=== PATIENT | female | born 1955 | race Caucasian/White ===

== ENCOUNTER → 2017-10-20 09:45 | Outpatient (CLI) | payer OTHER, SELFPAY ==
[2017-09-23 13:04] VITALS: BP 116/68; BMI 22.6
--- NOTE | 2017-10-20 10:00 | ECHOD_ITS ---
Reason For Study: Cardiomyopathy Procedure This was a 2D Doppler, Color Flow transthoracic echocardiogram. The exam was of adequate technical quality. Exam performed in department. Left Ventricle Normal LV size. Apical false tendon noted. Left ventricular systolic function is lower limits of normal. The estimated ejection fraction is 50 %. No regional wall motion abnormalities noted. Right Ventricle Normal RV size. Normal systolic function. Atria Normal left atrium. Normal right atrium. No doppler evidence for ASD. Mitral Valve There is no mitral annular calcification. Mild diffuse mitral valve thickening. Mild (1+) mitral valve insufficiency. Tricuspid Valve Normal tricuspid valve. Trivial tricuspid valve insufficiency. Aortic Valve Trisinus/trileaflet aortic valve. Mild diffuse aortic valve thickening. Pulmonic Valve The pulmonic valve is not well visualized. Trivial pulmonic valve insufficiency. Great Vessels Normal sized aortic root. Pericardium/Pleural No pericardial effusion. MMode/2D Measurements & Calculations LVIDd: 5.4 cm IVSd: 0.82 cm Ao root diam: 3.5 cm LVIDs: 3.9 cm LVPWd: 0.90 cm LA dimension: 3.1 cm FS: 28.2 % LAV(MOD-bp): 49.9 ml LA A4 area: 17.9 cm2 RA A4 area: 15.5 cm2 LAV(MOD-bp) Indexed: 30.3 ml/m2 LAV(MOD-sp2): 50.1 ml LAV(MOD-sp4): 48.9 ml Time Measurements MV dec time: 0.30 sec Doppler Measurements & Calculations MV E max tanvir: 80.3 cm/sec Med Peak E' Tanvir: 9.0 cm/sec MV V2 max: 90.5 cm/sec MV A max tanvir: 72.3 cm/sec E/E' med: 9.0 MV max P.3 mmHg MV E/A: 1.1 MV V2 mean: 51.3 cm/sec MV mean P.2 mmHg MV V2 VTI: 34.9 cm MV P1/2t max tanvir: 89.6 cm/sec Ao V2 max: 112.2 cm/sec LV V1 max: 76.9 cm/sec MV P1/2t: 149.1 msec Ao max P.0 mmHg LV V1 max P.4 mmHg MV dec slope: 176.0 cm/sec2 Ao V2 mean: 70.0 cm/sec LV V1 mean P.3 mmHg MVA(P1/2t): 1.5 cm2 Ao mean P.3 mmHg LV V1 mean: 54.7 cm/sec Ao V2 VTI: 24.5 cm LV V1 VTI: 18.8 cm PA V2 max: 103.0 cm/sec Interpretation Summary Left ventricular systolic function is lower limits of normal. The estimated ejection fraction is 50 %. Apical false tendon noted. Mild diffuse mitral valve thickening. Mild (1+) mitral valve insufficiency. Trivial tricuspid valve insufficiency. Mild diffuse aortic valve thickening. Trivial pulmonic valve insufficiency. Ordering Physician: Karri Trujillo Referring Physician: Karri Trujillo Performed By: John Kramer RCS
== END ==
PROVIDERS: Family Provider Internal Medicine; PCP Internal Medicine; Visit Provider Internal Medicine Cardiovascular Disease
DX: E78.5 Hyperlipidemia, unspecified (principal); I43 Cardiomyopathy in diseases classified elsewhere
CPT/HCPCS: 93306

== ENCOUNTER → 2017-11-05 16:11 | Outpatient (CLI) | payer OTHER, SELFPAY ==
[2017-11-05 17:51] LABS: Anion Gap 7 (5-15); BUN 25 mg/dL (7-18); BUN/Creat Ratio 22.3 RATIO (10-20); Calcium,Total 8.8 mg/dL (8.5-10.1); Chloride 103 mmol/L (98-107); Creatinine, Serum 1.12 mg/dL (0.55-1.02); EST Glomerular Filtration Rate 52 mL/min (>60); Est Glom Filt Rate - Afr Amer 63 mL/min (>60); Glucose 98 mg/dL (74-106); Potassium 4.1 mmol/L (3.5-5.1); Sodium Level 139 mmol/L (136-145)
== END ==
PROVIDERS: Family Provider Internal Medicine; PCP Internal Medicine; Visit Provider Internal Medicine
DX: I42.9 Cardiomyopathy, unspecified (principal)
CPT/HCPCS: 36415; 80048

== ENCOUNTER → 2017-11-06 15:23 | Outpatient (CLI) | payer OTHER, SELFPAY ==
--- NOTE | 2017-11-06 15:25 | HPBI_ITS ---
MAMMOGRAPHY - BILATERAL SCREENING REASON FOR EXAM: Female, 62 years old. Routine annual screening examination. PERTINENT HISTORY: Mother with breast cancer. TECHNIQUE: Digital bilateral breast johnathan (3D mammographic acquisition) in the CC and MLO projections. 2-D mediolateral oblique (MLO) and craniocaudad (CC) views of both breasts were obtained. CAD: Full Field Digital Mammography with Computer Added Detection was performed. COMPARISON: Comparison is made with prior study dated October 24, 2016 and September 18, 2015. FINDINGS: Breast Composition: The breasts are extremely dense, which lowers the sensitivity of mammography. There are no dominant masses or suspicious calcifications. No other significant abnormalities are identified. There has been no significant change since the prior study. HPBI/SCREENING MAMM (CAD), BILAT IMPRESSION: Stable bilateral screening mammogram. Yearly follow-up mammogram recommended. (A) ASSESSMENT CATEGORY: BIRADS Category 1: Negative. A letter regarding these results will be sent to the patient by the facility within 30 days. Approximately 10% of breast cancers are not detected by mammography. A normal mammogram should not delay biopsy of a clinically suspicious abnormality. [id number] Electronically Signed: Chetan Ba MD at 8:08 EST Tel [phone], Service support ,
== END ==
PROVIDERS: Family Provider Internal Medicine; PCP Internal Medicine; Visit Provider Obstetrics & Gynecology
DX: Z12.31 Encounter for screening mammogram for malignant neoplasm of breast (principal)
CPT/HCPCS: 77063; 77067

== ENCOUNTER 2018-04-13 05:28 | Day surgery (SDC) | payer OTHER, SELFPAY ==
[2018-03-29 09:53] VITALS: BP 109/58; PULSE 60; RESP 16; TEMP 36.5; O2SAT 97; BMI 22.1
--- NOTE | 2018-03-29 10:19 | SDCEKG_ITS ---
Test Reason : Blood Pressure : / mmHG Vent. Rate : 052 BPM Atrial Rate : 052 BPM P-R Int : 160 ms QRS Dur : 092 ms QT Int : 458 ms P-R-T Axes : 068 -14 -04 degrees QTc Int : 425 ms Sinus bradycardia with sinus arrhythmia Otherwise normal ECG Confirmed by LOUIS RAY, SANTIAGO ([id number]), telegraph editor ABBIE MKCEON ([id number]) on 03/30/2018 2:59:27 PM Referred By: Osvaldo Angel Confirmed By:SANTIAGO MYERS MD
[2018-03-29 10:54] LABS: Absolute Lymphocyte Count 1.65 X10^3/ul (0.83-4.51); Absolute Neutrophil Count 2.9 X10^3/uL (2.0-7.7); Basophil# 0.01 X10^3/uL; Basophil% 0.2 % (0-1); Eosinophils% 3.7 % (0-5); Hematocrit 37.8 % (37-47); Hemoglobin 12.3 g/dl (12.0-15.0); Lymphocyte # 1.65 X10^3/ul (4.0); Lymphocyte % 30.9 % (19-41); Mean Corp Hgb Conc 32.5 g/gl (32-36); Mean Corpuscular Hgb 30.7 pg (27.0-32.0); Mean Corpuscular Volume 94.3 fL (81-99); Monocyte# 0.54 X10^3/uL; Monocyte% 10.1 % (0-10); Neutrophil # 2.94 X10^3/uL (2.7-7.7); Neutrophil % 55.1 % (47-70); Platelet Count 155 K/mm3 (150-450); RBC Distribution Width SD 45.5 fl (35.1-43.9); Red Blood Count 4.01 M/mm3 (4.2-5.4); White Blood Count 5.3 K/mm3 (4.4-11.0)
[2018-03-29 11:04] LABS: POSITIVE COUNT NO; POSITIVE DIFFERENTIAL NO; POSITIVE MORPHOLOGY NO
[2018-03-29 11:16] LABS: Anion Gap 4 (5-15); BUN 15 mg/dL (7-18); BUN/Creat Ratio 14.2 RATIO (10-20); Calcium,Total 8.9 mg/dL (8.5-10.1); Chloride 109 mmol/L (98-107); Creatinine, Serum 1.06 mg/dL (0.55-1.02); EST Glomerular Filtration Rate 55 mL/min (>60); Est Glom Filt Rate - Afr Amer 67 mL/min (>60); Estimated Creatinine Clearance 47.61 ml/min; Glucose 88 mg/dL (74-106); Potassium 4.1 mmol/L (3.5-5.1); Sodium Level 142 mmol/L (136-145)
[2018-04-13 05:54] VITALS: BP 108/45; PULSE 55; RESP 16; TEMP 37.1; O2SAT 100; BMI 22.1
[2018-04-13] MEDS: oxyCODONE HCl Cr 10 MG Tablet PO (06:05)
[2018-04-13] MEDS: Acetaminophen 500 MG Tablet 1000 MG PO (06:05)
[2018-04-13] MEDS: Celecoxib 200 MG Capsule 400 MG PO (06:06)
[2018-04-13] MEDS: Lactated Ringers 1,000 ML 999 ML IV (06:30)
--- NOTE | 2018-04-13 06:44 | RAD_ITS ---
STUDY: X-RAY - PELVIS AND RIGHT HIP REASON FOR EXAM: Female, 63 years old. Postop TECHNIQUE: Radiological exam, hip, unilateral, with pelvis when performed; 2 or 3 views. COMPARISON: None. FINDINGS: There is a non-specific bowel gas pattern. Normal visualized soft tissue structures. Normal bilateral iliac wings, sacroiliac joints and visualized sacrum. Normal bilateral superior and inferior pubic rami. Normal pubic symphysis. Normal bilateral ischial tuberosities. Status post total right hip replacement changes are seen. Implants appear in good position. Scattered soft tissue air densities are seen in the right hip area consistent with history of recent surgery. RAD/Hip Min 2 Views (Portable) IMPRESSION: Status post total replacement changes noted with implants appearing in good position. Electronically Signed: Theodore Osborn MD at 17:05 EDT , Service support ,
[2018-04-13] MEDS: Cefazolin 2 GM in 0.9% Normal Saline 100 ML IV (07:14)
[2018-04-13] MEDS: Lactated Ringers 1,000 ML 125 ML IV (07:15)
--- NOTE | 2018-04-13 07:15 | RAD_ITS ---
STUDY: X-RAY - PELVIS AND RIGHT HIP REASON FOR EXAM: Female, 63 years old. Anterior hip replacement. TECHNIQUE: Radiological exam, hip, unilateral, with pelvis when performed; 2 or 3 views. COMPARISON: None. FINDINGS: Intraoperative fluoroscopic services were provided for right anterior total hip replacement. There is good alignment. RAD/Hip 1 view with Pelvis IMPRESSION: Status post right anterior total hip replacement. Electronically Signed: Chetan Ba MD at 10:29 EDT Tel [phone], Service support ,
--- NOTE | 2018-04-13 08:36 | OP.PCM_ITS ---
Report of Operation Date of Procedure: 04/13/18 Pre-Operative Diagnosis: Right hip primary osteoarthritis Post-Operative Diagnosis: Right hip primary osteoarthritis Surgery/Procedure Performed:: Right direct anterior total hip replacement Description of Surgical Findings:: Stable hip with equal leg lengths cream maker: Arnoldo Valero Type of Anesthesia:: Spinal Anesthesiologist: Willis Packer Special Medications: 2 g Ancef, 1 g TXA at incision, 1 g TXA closure, 10 mg Decadron, joint cocktail (5 mg Duramorph, 30 mL of 0.5% Ropivicaine, 1000 units of epinephrine, 30 mg of Toradol) Specimen's removed: Bony cuts Estimated Blood Loss (mL): 200 Fluids Replaced: 1400 ml Description of Procedure: Components used: 1. Accolade 2 [place] femoral stem size 5 127? 2. [place] trident acetabular shell size 52 mm 3. Portia X3 polyethylene E 4. [place] Biolox delta 36-mm,5]mm femoral head Brief history operative indications: 63 yo F who failed conservative measures for their hip osteoarthritis. X-rays were consistent with osteoarthritis including joint space narrowing, osteophyte formation and subchondral cysts. Total hip replacement was discussed with the patient with risks and benefits including but not limited to blood loss, DVTs, PEs, neurovascular damage, dislocation, general risks of anesthesia including loss of life. Patient demonstrated an understanding medical clearance is obtained the patient was consented for surgery. Procedure: On the date of procedure the patient's R hip was marked in the preoperative area. Patient was then taken back to the operating room where anesthesia assumed control of the C-spine and airway and administered anesthetic. Patient was transferred to the operating table and placed in the supine position. The hips were placed at the break of the bed and a sacral bump was placed. The R lower extremity was then prepped out in a sterile fashion using chlorhexidine while the surgeon scrubbed. The PA was vital in the positioning of the patient. Upon reentering the room the R lower extremity was draped in the standard orthopedic fashion and the incision was marked. A timeout was called and everyone agreed upon the side, the site, the procedure be performed, antibody given, and patient's identity. At this time incision was made through skin, subcutaneous tissue, and fat down to fascia. The fascia was then incised and the TFL was retracted laterally. A retractor was placed on the lateral border of the femoral neck. Attention was directed to the inferior portion of the approach and all crossing vessels were identified and appropriately coagulated. A retractor was then placed on the medial portion of the femoral neck. The anterior capsule was then cleared of all soft tissue and then H shaped capsulotomy was made. The retractors were then placed inside the capsule. The femoral neck was identified and a cleanup cut was made. At this time a power corkscrew was used to remove the femoral head. Attention was then turned toward the acetabulum where the soft tissues were appropriately retracted and the acetabulum was sequentially reamed to 51 mm. A 52 mm cup was then selected and impacted into place. Acetabular liner was impacted into place and locking mechanism was verified. The position of the acetabular cup was then verified under live fluoroscopy. Attention was then turned to the femur. Soft tissue releases on the medial and lateral femoral neck were appropriately done, the leg was externally rotated and lateralized. A Mart retractor was placed medially and proximally to the greater trochanter this allowed appropriate visualization and exposure of the femoral canal. Rongeour was then used to remove excess lateral bone. A canal finder and entry broach were used to open the proximal canal. Once we verified we were down the femoral canal we subsequently broached up to a size 5 femur. The appropriate neck was placed in the previously selected head was trialed with a -5 mm neck. Traction was pulled and the hip was reduced with internal rotation. Once it was appropriately reduced and stability was checked. There was minimal shuck, equal leg lengths and appropriate stability with hyperextension and external rotation as well as with 90? flexion and internal rotation. Fluoroscopy was then also used to verify the position of the components and leg lengths using the contralateral side for comparison. The trial components were then dislocated the proximal femur was again exposed and the components were removed from the wound. The final components were verified and opened. The wound was copiously irrigated out with normal saline. The acetabulum was checked for any residual debris. The final components were placed and impacted. Traction and internal rotation were again used to reduce the hip. After adequate reduction the hip remained stable with appropriate leg lengths. The final components were once again checked with live fluoroscopy and were found to be satisfactory. The wound was then copiously irrigated with normal saline once more, and hemostasis was obtained. Closure was then done using #1 Vicryl runner to close the fascia. A 2-0 vicryl interuppted sutures were used to close the subcutaneous skin. A 3-0 Monocryl and Steri-Strips were used for final skin closure. A Silverlon dressing was placed. Patient was awakened by anesthesia and transferred to the [facility]. Patient was then transferred to the PACU for recovery. Postoperative plan: Patient will get 24 hours postop antibiotics. Patient will get in-house physical therapy and will be weight-bear as tolerated. Patient will follow up in office in 2 weeks for a wound check and x-rays. During the course of the procedure the physician legal document assistant played a vital role. His intimate knowledge of my steps in the procedure aided in safe and expedient completion of the procedure. The PA played a vital rolls in positioning particularly in obtaining the appropriate positioning of the sacral bump. The PA was also vital in the retraction of soft tissues during the exposure and especially the femoral work as this is a vital part of the procedure to prevent complications and fractures. The PA was also vital and protecting soft tissues during times of bony cuts and reaming. He also played a vital role in closure with my direct supervision. The PA was also important during reduction and dislocation of the joint and trials intraoperatively. Grafts/Implants Used: [place] Accolade 2 - Complications none - Admit VTE Documentation VTE Present on Admission: No VTE Mechan Device Prophylaxis: SCD's, Thigh High ANALIA Hose VTE Pharm Prophylaxis ordered?: Yes
[2018-04-13 08:58] VITALS: BP 108/45; BP 116/71; PULSE 71; RESP 18; TEMP 36.3; O2SAT 100
[2018-04-13 09:15] VITALS: BP 108/45; BP 122/74; PULSE 66; RESP 18; O2SAT 100
[2018-04-13 09:25] VITALS: BP 108/45; BP 129/60; PULSE 66; RESP 18; TEMP 36.3; O2SAT 100
[2018-04-13] MEDS: Cefazolin 1 GM/50 ML BAG IV (12:20)
[2018-04-13] MEDS: oxyCODONE 5 MG Tablet PO (12:35)
[2018-04-13 13:01] VITALS: BP 108/45; BP 109/59; PULSE 53; RESP 16; TEMP 36.2; O2SAT 99
== END 2018-04-13 13:05 | disposition home or self-care (01) ==
LOC: AC 16:12
PROVIDERS: Family Provider Internal Medicine; PCP Internal Medicine; Visit Provider Specialist
PROC: (CPT 27284; principal; 2018-04-13 06:50)
DX: M16.11 Unilateral primary osteoarthritis, right hip (principal); M51.36 Other intervertebral disc degeneration, lumbar region; J45.909 Unspecified asthma, uncomplicated; I42.8 Other cardiomyopathies; E78.00 Pure hypercholesterolemia, unspecified; F32.9 Major depressive disorder, single episode, unspecified; Z85.828 Personal history of other malignant neoplasm of skin; Z79.891 Long term (current) use of opiate analgesic; Z79.82 Long term (current) use of aspirin; Z79.51 Long term (current) use of inhaled steroids; Z79.899 Other long term (current) drug therapy
CPT/HCPCS: 01214; 27130; 73501; 73502; 76000; 80048; 85025; 87077; 87081; 93005; 97162; C1776; J7120; A4216; J2405

== ENCOUNTER → 2018-05-26 10:50 | Outpatient (CLI) | payer OTHER, SELFPAY ==
--- NOTE | 2018-05-26 10:55 | BD_ITS ---
STUDY: DUAL ENERGY X-RAY ABSORPTIOMETRY / DXA REASON FOR EXAM: Female, 63 years old. The patient is postmenopausal. Loss of height. TECHNIQUE: Bone Mineral Density (BMD) measurements of lumbar spine and left hip were obtained. The patient is status post right hip replacement. COMPARISON: None. FINDINGS: Lumbar Spine (L1-L4): g/cm2 (0.974) / T-score (-1.6) / Z-score (0.0) Findings are suggestive of osteopenia with a moderate fracture risk. Left Femur Total: g/cm2 (0.749) / T-score (-2.1) / Z-score (-0.9) Left Femoral Neck: g/cm2 (0.827) / T-score (-1.5) / Z-score (0.1) BD/Dexa Bone Density Study IMPRESSION: The patient is considered osteopenic as outlined below according to World Mike Organization (WHO) criteria with a moderate fracture risk. Reference Information: The T-score is the number of standard deviations above or below the standard which is normal for young adults at their peak bone mineral density. The World Health Organization (WHO) interprets the T-scores as follows: Above -1 Normal bone density Between -1 and -2.5 Osteopenia Equal to / or below -2.5 Osteoporosis As a practical clinical guideline, osteopenia may be graded as follows: Mild -1 through -1.5 Moderate -1.6 through -2.0 Severe -2.1 through -2.4 The Z-score is the number of standard deviations above or below age-matched controls. A Z-score of less than -1.5 would be considered abnormal. References: 1. NIH Osteoporosis and Related Bone Diseases http://www.osteo.org 2. International Society for Clinical Densitometry http://www.iscd.org 3. National Osteoporosis Foundation http://www.nof.org Electronically Signed: Chetan Ba MD at 15:32 EDT Tel [phone], Service support ,
== END ==
PROVIDERS: Family Provider Internal Medicine; PCP Internal Medicine; Visit Provider Internal Medicine
DX: Z78.0 Asymptomatic menopausal state (principal)
CPT/HCPCS: 77080

== ENCOUNTER → 2018-09-27 07:16 | Outpatient (CLI) | payer OTHER, SELFPAY ==
[2018-05-05 14:10] VITALS: BMI 20.9
[2018-09-27 08:32] LABS: AST(SGOT) 21 U/L (15-37); Alanine Aminotransfer ALT/SGPT 32 U/L (13-56); Albumin, Serum 3.5 g/dL (3.2-5.0); Alkaline Phosphatase 71 U/L (45-117); Bilirubin, Direct 0.11 mg/dL (0.00-0.30); Cholesterol 166 mg/dL (200); Globulin 3.3 g/dL (2.2-4.2); High Density Lipoprotein 64 mg/dL; Protein, Total 6.8 g/dL (6.4-8.2); Triglycerides 66 mg/dL; Very Low Density Lipoprotein 13 mg/dL (5-40)
== END ==
PROVIDERS: Family Provider Internal Medicine; PCP Internal Medicine; Referring Provider Internal Medicine Cardiovascular Disease; Visit Provider Internal Medicine Cardiovascular Disease
DX: E78.5 Hyperlipidemia, unspecified (principal)
CPT/HCPCS: 36415; 80061; 80076

== ENCOUNTER → 2019-04-28 | Outpatient (CLI) | payer OTHER, SELFPAY ==
[2019-01-19 14:16] VITALS: BMI 23.1
--- NOTE | 2019-04-28 07:19 | BI_ITS ---
MAMMOGRAPHY - BILATERAL SCREENING REASON FOR EXAM: Female, 64 years old. Routine annual screening examination. PERTINENT HISTORY: Mother with breast cancer. History of remote right breast aspiration. TECHNIQUE: Digital bilateral breast sánchez (3D mammographic acquisition) in the CC and MLO projections. 2-D mediolateral oblique (MLO) and craniocaudad (CC) views of both breasts were obtained. CAD: Full Field Digital Mammography with Computer Added Detection was performed. COMPARISON: Comparison is made with prior study dated November 06, 2017 and October 24, 2016. FINDINGS: Breast Composition: The breasts are extremely dense, which lowers the sensitivity of mammography. There are no dominant masses or suspicious calcifications. No other significant abnormalities are identified. There has been no significant change since the prior study. BI/SCREEN MAMM (CAD) W/SÁNCHEZ BILAT IMPRESSION: Stable bilateral screening mammogram. Yearly follow-up mammogram recommended. (A) ASSESSMENT CATEGORY: BIRADS Category 1: Negative. A letter regarding these results will be sent to the patient by the facility within 30 days. Approximately 10% of breast cancers are not detected by mammography. A normal mammogram should not delay biopsy of a clinically suspicious abnormality. [id number] Electronically Signed: Chetan Ba, at 9:05 EDT , Service support ,
== END | disposition home or self-care (01) ==
PROVIDERS: Family Provider Internal Medicine; PCP Internal Medicine; Referring Provider Obstetrics & Gynecology; Visit Provider Obstetrics & Gynecology
DX: Z12.31 Encounter for screening mammogram for malignant neoplasm of breast (principal)
CPT/HCPCS: 77063; 77067

== ENCOUNTER → 2019-05-12 | Outpatient (CLI) | payer OTHER, SELFPAY ==
[2019-05-09 09:39] VITALS: BMI 23.1
[2019-05-12 09:17] LABS: Absolute Lymphocyte Count 1.81 X10^3/uL (0.83-4.51); Absolute Neutrophil Count 3.3 X10^3/uL (2.0-7.7); Basophil# 0.03 X10^3/uL; Basophil% 0.5 % (0-1); Eosinophil# 0.19 X10^3/uL; Eosinophils% 3.2 % (0-5); Hematocrit 38.5 % (37-47); Hemoglobin 12.6 g/dL (12.0-15.0); Lymphocyte # 1.81 X10^3/ul (4.0); Lymphocyte % 30.5 % (19-41); Mean Corp Hgb Conc 32.7 g/dL (32-36); Mean Corpuscular Hgb 31.1 pg (27.0-32.0); Mean Corpuscular Volume 95.1 fL (81-99); Mean Platelet Vol. 11.6 fl (6.2-12.0); Monocyte# 0.61 X10^3/uL; Monocyte% 10.3 % (0-10); NRBC Flagged by Analyzer 0 % (0-5); Neutrophil # 3.28 X10^3/uL (2.7-7.7); Neutrophil % 55.3 % (47-70); Platelet Count 172 K/mm3 (150-450); RBC Distribution Width CV 12.6 % (11.6-14.6); RBC Distribution Width SD 43.8 fl (35.1-43.9); Red Blood Count 4.05 M/mm3 (4.2-5.4); White Blood Count 5.9 K/mm3 (4.4-11.0)
[2019-05-12 09:42] LABS: ALB/GLOB Ratio 1.1 RATIO (0.9-2.4); AST(SGOT) 22 U/L (15-37); Alanine Aminotransfer ALT/SGPT 29 U/L (13-56); Albumin, Serum 3.7 g/dL (3.2-5.0); Alkaline Phosphatase 74 U/L (45-117); Anion Gap 7 (5-15); BUN 25 mg/dL (7-18); BUN/Creat Ratio 21.9 RATIO (10-20); Calcium,Total 9.1 mg/dL (8.5-10.1); Chloride 109 mmol/L (98-107); Creatinine, Serum 1.14 mg/dL (0.55-1.02); EST Glomerular Filtration Rate 51 mL/min (>60); Est Glom Filt Rate - Afr Amer 61 mL/min (>60); Globulin 3.4 g/dL (2.2-4.2); Glucose 88 mg/dL (74-106); Potassium 4.9 mmol/L (3.5-5.1); Protein, Total 7.1 g/dL (6.4-8.2); Sodium Level 144 mmol/L (136-145)
== END | disposition home or self-care (01) ==
LOC: LAB 08:21
PROVIDERS: Family Provider Internal Medicine; PCP Internal Medicine; Referring Provider Internal Medicine; Visit Provider Internal Medicine
DX: E78.5 Hyperlipidemia, unspecified (principal); K21.9 Gastro-esophageal reflux disease without esophagitis
CPT/HCPCS: 36415; 80053; 85025

== ENCOUNTER 2019-05-26 13:18 | Outpatient (RCR) | payer OTHER, SELFPAY ==
[2019-05-09 09:39] VITALS: BMI 23.1
--- NOTE | 2019-05-26 13:30 | SOAP_ITS ---
REASON FOR REFERRAL: The Patient is a 64 year old female referred for a clinical assessment of the Patients vocal functioning at [facility] on 05/26/2019 due to persistent dysphonia and occasional aphonia secondary to presbyphonia with prior vocal nodules. The Patient was pleasant and conversant throughout the assessment, reporting persistent vocal hoarseness, dysphonia, and at times cacophonia with vocal fatigue / deterioration particularly during and following singing attempts. She reports her symptoms had initially appeared in July of 2016 and July of 2017, lasting about 1 month in duration; she reports a recurrence of symptoms in July of 2018, though her symptoms have yet to resolve, though have somewhat fluctuated in regards to intensity. She details workup targeting reflux through both her civil engineering project designer (Samra) and primary care physician, with placement on Omeprazole with some improvements (reductions in coughing and mucous production); she notably self-discontinued usage prior to suspected achievement of therapeutic effect, and has subsequently been recommended to continued usage by her primary care physician. She reports workup via her civil engineering project designer revealed irritation secondary to reflux (unclear if this was laryngeal, pharyngeal, esophageal, or in combination), with no further structurally based findings, with etiological considerations for presbyphonia. She further reports attempts to manage her reflux through dietary changes (reduction in caffeine intake, reduction in spicy foods / acidic foods, smaller meal sizes), though with limited success (states specific difficulty giving up spicy foods). She further reports attempts to ameliorate symptomology through ingestion of warm vs. cold beverages (ineffective). Of note, she reports that her sister had demonstrated similar issues with vocalization approximately 10 years prior leading to a period of near complete aphonia, with her symptomology directly related to reflux induced irritation, which was responsive to similar treatment with proton pump inhibitors. She additionally reports persistent allergies that typically flair in the early summer months, which have been somewhat managed via Loratadine / Claritin, though she reps these symptoms have worsened this season, and has relied more so on Zyrtec; more recently placed on Singulair. She reports enjoying both basketball and football, and does report getting somewhat animated and loud during games, though nothing overbearing. She additionally participates in social activities through her spiritism, is currently attending Austrian classes, and is an avid reader. She does participate in her spiritism choir, and states concern with singing methods that require lower registers vs. four part harmony which she believes exacerbates her symptoms; she reports occasional dysphonia, diplophonia, and cacophonia during singing attempts. She does report potentially maladaptive singing behaviors, stating she occasionally ?pushing? her singing intensity to match that of her , whom she states is a naturally loud nieto. She currently resides with her , and has three grown children. 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 Her affect appears appropriate, with no concerns with cognitive functioning; ambulating independently without needs for assistive devices. MEDICAL HISTORY: Gastroesophageal reflux disease, asthma, shortness of breath, allergic rhinitis, prior basal cell skin cancer, nonrheumatic mitral valve disorder, idiopathic cardiomyopathy, hyperlipidemia, depression, chronic fatigue, status post section, carpal tunnel syndrome status post-surgical intervention, status post trigger finger release, status post meniscus repair, status post hip replacement, status post right knee replacement. CURRENT MEDICATIONS: Loratadine 10 mg capsule 10 mg PO QDAY PRN Metronidazole [Metrogel] 60 gm TP PRN Carvedilol 25 mg tablet 25 mg PO BID #180 tab Lisinopril 10 mg tablet 10 mg PO BID #180 tab Calcium carbonate-vitamin D3 500 mg (1,250 mg)-600 unit tablet 1 tab PO BID Albuterol sulfate HFA 90 mcg/actuation aerosol inhaler 2 puff INHALATION Q6H PRN Budesonide 180 mcg/actuation breath activated powder inhaler 1 INH INHALATION BID Omeprazole 40 mg capsule, delayed release 40 mg PO DAILY Pravastatin 20 mg tablet 20 mg PO QHS #90 tab Montelukast 10 mg tablet 10 mg PO QPM #30 tab Bupropion HCl XL 300 mg 24 hr. tablet, extended release 300 mg PO QAM ADDITIONAL OBJECTIVE ASSESSMENT RESULTS: 11/10/2018 pulmonary functions test revealed the presence of an irreversible moderate large airways obstructive ventilatory defect with a mild reduction in diffusion capacity; pattern of this study would be suggestive of underlying chronic obstructive pulmonary disease; no previous pulmonary function studies available for comparison. CLINICAL ASSESSMENT OF VOCAL FUNCTIONING (QUANTITATIVE): Reflux Symptom Index (RSI): 7 (>13 may be indicative of significant reflux) Voice Handicap Index ? 10 (VHI-10): 7 (slight alteration) S/Z Ratio: 1.23 (1.40 suggests vibratory dysfunction of the vocal folds) Maximum Phonation Time (MPT): 21.82 seconds Average Maximum Intensity of Sustained Vowel Phonation: 76.1 dBSPL Average Vocal Intensity During Reading of Passage: 65.68 dBSPL CLINICAL ASSESSMENT OF VOCAL FUNCTIONING (QUALITATIVE): PHONATORY DISORDERS: dysphonia with occasional / intermittent diplophonia, vocal hoarseness, and glottal martinez leading to occasional pitch breaks; noted deterioration of vocal quality with prolonged use; no clear strained- strangled production or glottal attack (though per report this may be demonstrated during choir based activities); no vocal tremor; sufficient vocal intensity throughout vocalizations. RESONANCE DISORDERS: no hypernasality / hyperrhinolalia or hyponasality appreciated. RESPIRATORY FACTORS: appropriate breathing rate and quality without claviclular breathing or open mouth breathing; no stridor. STRUCTURAL / NEUROLOGICAL: no aphasia, apraxia, dysarthria, or atypical disfluent patterns noted. NON-VERBAL VOCAL RANGE AND FLEXIBILITY: sufficient vocal intensity throughout vocalization attempts; acceptable pitch range for demonstrated registers. NON-PHONATORY BEHAVIORS: occasional throat clearing (x7) and coughing (x3) throughout the session with no clear trigger; no claviclular breathing noted; no stridor. RESULTS OF THE EVALUATION: Clinical assessment of the Patients vocal function completed this date, with the Patient presenting with mild dysphonia (R49.0) likely secondary to a combination of factors, to include possible irritation secondary to previously unmanaged gastroesophageal reflux disease. RECOMMENDATIONS: Will encourage vocal rest paired with continued compliance with recommended proton pump inhibitors to promote continued reduction in potential irritation to the vocal structures. Recommend holding participation in choir based activities (at minimum significantly limiting participation / vocal projection). Re-convene in 3 months? time (session scheduled for August 25 at 0900) to re-assess her vocal functioning for potential improvements, with considerations for implementation of (VRT) approach in addition to targeting vocal functioning / dysphonia via structured therapeutic exercises targeting improved breath support, medial glottal closure, pitch control, and vocal flexibility; development of a home based exercise and vocal hygiene program to promote continued carryover post intervention cycle; FUNCTIONAL OUTCOMES: OUTCOME 1: the Patient will demonstrate and utilize recommended therapeutic exercises targeting improved breath support, medial glottal closure, pitch control, and vocal flexibility to reduce the effects of dysphonia and improve communicative effectiveness, across 3 consecutive sessions OUTCOME 2: the Patient will participate in a home based vocal exercise and vocal hygiene program to promote improved and preserved communication effectiveness by reducing the effects of dysphonia, across 3 consecutive sessions. OUTCOME 3: goal adjustment as needed James Shelley M.A., CCC-GARMENT TURNER, CBIS MBSImP Certified, LSVT Certified [facility] Speech-Language Pathology Department [email or web address]
== END 2019-05-26 19:00 | disposition home or self-care (01) ==
LOC: SP 13:18
PROVIDERS: Family Provider Internal Medicine; PCP Internal Medicine; Referring Provider Internal Medicine; Visit Provider Internal Medicine
DX: R49.0 Dysphonia (principal)

== ENCOUNTER → 2019-07-28 | Outpatient (CLI) | payer OTHER, SELFPAY ==
[2019-07-28 08:09] VITALS: BMI 23.1
[2019-07-28 09:33] LABS: Absolute Lymphocyte Count 1.75 X10^3/uL (0.83-4.51); Absolute Neutrophil Count 3.7 X10^3/uL (2.0-7.7); Basophil# 0.02 X10^3/uL; Basophil% 0.3 % (0-1); Eosinophil# 0.21 X10^3/uL; Eosinophils% 3.4 % (0-5); Hematocrit 40.7 % (37-47); Hemoglobin 13.3 g/dL (12.0-15.0); Lymphocyte # 1.75 X10^3/ul (4.0); Lymphocyte % 28.1 % (19-41); Mean Corp Hgb Conc 32.7 g/dL (32-36); Mean Corpuscular Hgb 31.1 pg (27.0-32.0); Mean Corpuscular Volume 95.3 fL (81-99); Mean Platelet Vol. 10.7 fl (6.2-12.0); Monocyte# 0.58 X10^3/uL; Monocyte% 9.3 % (0-10); NRBC Flagged by Analyzer 0 % (0-5); Neutrophil # 3.66 X10^3/uL (2.7-7.7); Neutrophil % 58.7 % (47-70); Platelet Count 173 K/mm3 (150-450); RBC Distribution Width CV 12.3 % (11.6-14.6); RBC Distribution Width SD 43.3 fl (35.1-43.9); Red Blood Count 4.27 M/mm3 (4.2-5.4); White Blood Count 6.2 K/mm3 (4.4-11.0)
[2019-07-31 04:09] LABS: Alternaria alternata <0.10 kU/L (Class 0); Bermuda Grass <0.10 kU/L (Class 0); Bluegrass, Kentucky <0.10 kU/L (Class 0); Cat Hair/Dander, Standard <0.10 kU/L (Class 0); D farinae Mite 9.99 kU/L (Class IV); Dog Epithelia <0.10 kU/L (Class 0); Elm, American White <0.10 kU/L (Class 0); Oak, White <0.10 kU/L (Class 0); Plantain, English <0.10 kU/L (Class 0); Ragweed, Short/Common <0.10 kU/L (Class 0)
[2019-07-31 20:10] LABS: Aspirgillus flavus Negative (Neg:<1:1); Aspirgillus fumigatus Negative (Neg:<1:1); Aspirgillus niger Negative (Neg:<1:1)
[2019-08-01 13:41] LABS: Immunoglobulin E 71 IU/mL (6-495)
[2019-08-01 13:45] LABS: Mouse Urine <0.10 kU/L (Class 0)
== END | disposition home or self-care (01) ==
LOC: PAVLAB 09:15
PROVIDERS: Family Provider Internal Medicine; PCP Internal Medicine; Referring Provider Nurse Practitioner Acute Care; Visit Provider Nurse Practitioner Acute Care
DX: J45.909 Unspecified asthma, uncomplicated (principal)
CPT/HCPCS: 36415; 82785; 85025; 86003; 86606

== ENCOUNTER 2019-10-18 08:55 | Outpatient (RCR) | payer OTHER, SELFPAY ==
[2019-08-16 07:46] VITALS: BMI 21.4
== END 2019-11-12 23:59 ==
LOC: NS 08:55
PROVIDERS: PCP Internal Medicine; Visit Provider Nurse Practitioner Family
DX: Z71.3 Dietary counseling and surveillance (principal); N18.3 Chronic kidney disease, stage 3 (moderate); E78.5 Hyperlipidemia, unspecified
CPT/HCPCS: 97802

== ENCOUNTER → 2019-11-10 07:16 | Outpatient (CLI) | payer OTHER, SELFPAY ==
[2019-08-16 07:46] VITALS: BMI 21.4
[2019-11-10 08:02] LABS: AST(SGOT) 24 U/L (15-37); Alanine Aminotransfer ALT/SGPT 33 U/L (13-56); Albumin, Serum 3.7 g/dL (3.2-5.0); Alkaline Phosphatase 75 U/L (45-117); Bilirubin, Direct 0.12 mg/dL (0.00-0.30); Cholesterol 190 mg/dL (200); Globulin 3.3 g/dL (2.2-4.2); High Density Lipoprotein 67 mg/dL; Triglycerides 50 mg/dL; Very Low Density Lipoprotein 10 mg/dL (5-40)
== END ==
PROVIDERS: PCP Internal Medicine; Referring Provider Internal Medicine Cardiovascular Disease; Visit Provider Internal Medicine Cardiovascular Disease
DX: E78.00 Pure hypercholesterolemia, unspecified (principal); E78.5 Hyperlipidemia, unspecified
CPT/HCPCS: 36415; 80061; 80076

== ENCOUNTER 2019-11-15 08:38 | Outpatient (RCR) | payer OTHER, SELFPAY ==
[2019-08-16 07:46] VITALS: BMI 21.4
[2019-11-14 12:19] VITALS: BMI 21.2
== END 2019-12-13 23:59 ==
LOC: NS 08:38
PROVIDERS: PCP Internal Medicine; Visit Provider Nurse Practitioner Family
DX: Z71.3 Dietary counseling and surveillance (principal); N18.3 Chronic kidney disease, stage 3 (moderate); E78.5 Hyperlipidemia, unspecified
CPT/HCPCS: 97803

== ENCOUNTER → 2020-03-14 15:55 | Outpatient (CLI) | payer OTHER, SELFPAY ==
[2020-03-14 15:33] VITALS: BMI 21.2
[2020-03-14 17:08] LABS: Absolute Lymphocyte Count 2.21 X10^3/uL (0.83-4.51); Absolute Neutrophil Count 2.9 X10^3/uL (2.0-7.7); Basophil# 0.03 X10^3/uL; Basophil% 0.5 % (0-1); Eosinophil# 0.12 X10^3/uL; Eosinophils% 2.1 % (0-5); Hematocrit 39.7 % (37-47); Hemoglobin 12.7 g/dL (12.0-15.0); Lymphocyte # 2.21 X10^3/ul (4.0); Lymphocyte % 37.9 % (19-41); Mean Corpuscular Hgb 30.9 pg (27.0-32.0); Mean Corpuscular Volume 96.6 fL (81-99); Mean Platelet Vol. 11.4 fl (6.2-12.0); Monocyte# 0.56 X10^3/uL; Monocyte% 9.6 % (0-10); NRBC Flagged by Analyzer 0 % (0-5); Neutrophil % 49.7 % (47-70); Platelet Count 179 K/mm3 (150-450); RBC Distribution Width CV 12.6 % (11.6-14.6); RBC Distribution Width SD 44.2 fl (35.1-43.9); Red Blood Count 4.11 M/mm3 (4.2-5.4); White Blood Count 5.8 K/mm3 (4.4-11.0)
[2020-03-14 17:55] LABS: Anion Gap 4 (5-15); BUN 21 mg/dL (7-18); BUN/Creat Ratio 18.4 RATIO (10-20); Calcium,Total 8.9 mg/dL (8.5-10.1); Chloride 107 mmol/L (98-107); Creatinine, Serum 1.14 mg/dL (0.55-1.02); EST Glomerular Filtration Rate 51 mL/min (>60); Est Glom Filt Rate - Afr Amer 61 mL/min (>60); Glucose 69 mg/dL (74-106); Potassium 4.3 mmol/L (3.5-5.1); Sodium Level 139 mmol/L (136-145)
[2020-03-14 17:59] LABS: Vitamin D,25 Hydroxy 41.3 ng/mL
[2020-03-14 18:07] LABS: AST(SGOT) 30 U/L (15-37); Alanine Aminotransfer ALT/SGPT 34 U/L (13-56); Albumin, Serum 3.9 g/dL (3.2-5.0); Alkaline Phosphatase 78 U/L (45-117); Bilirubin, Direct 0.19 mg/dL (0.00-0.30); Cholesterol 165 mg/dL (200); Globulin 3.2 g/dL (2.2-4.2); High Density Lipoprotein 68 mg/dL; Protein, Total 7.1 g/dL (6.4-8.2); Triglycerides 44 mg/dL; Very Low Density Lipoprotein 9 mg/dL (5-40)
== END ==
PROVIDERS: Internal Medicine Cardiovascular Disease; PCP Internal Medicine; Referring Provider Internal Medicine; Visit Provider Internal Medicine
DX: K21.9 Gastro-esophageal reflux disease without esophagitis (principal); F32.9 Major depressive disorder, single episode, unspecified; E78.5 Hyperlipidemia, unspecified; E78.00 Pure hypercholesterolemia, unspecified; M85.80 Other specified disorders of bone density and structure, unspecified site
CPT/HCPCS: 80048; 80061; 80076; 82306; 85025

== ENCOUNTER → 2020-05-17 09:20 | Outpatient (CLI) | payer OTHER, SELFPAY ==
[2020-03-14 15:33] VITALS: BMI 21.2
[2020-05-16 11:51] VITALS: BMI 22.3
--- NOTE | 2020-05-17 09:21 | BI_ITS ---
MAMMOGRAPHY - BILATERAL SCREENING REASON FOR EXAM: Female, 65 years old. Routine annual screening examination. PERTINENT HISTORY: Mother with breast cancer. Remote right aspiration breast biopsy. TECHNIQUE: Digital bilateral breast sánchez (3D mammographic acquisition) in the CC and MLO projections. 2-D mediolateral oblique (MLO) and craniocaudad (CC) views of both breasts were obtained. CAD: Full Field Digital Mammography with Computer Added Detection was performed. COMPARISON: Comparison is made with prior study dated 04/28/2019 and 11/06/2017. FINDINGS: Breast Composition: The breasts are extremely dense, which lowers the sensitivity of mammography. There are no dominant masses or suspicious calcifications. No other significant abnormalities are identified. There has been no significant change since the prior study. BI/SCREEN MAMM (CAD) W/SÁNCHEZ BILAT IMPRESSION: Stable bilateral screening mammogram. Yearly follow-up mammogram recommended. (A) ASSESSMENT CATEGORY: BIRADS Category 1: Negative. A letter regarding these results will be sent to the patient by the facility within 30 days. Approximately 10% of breast cancers are not detected by mammography. A normal mammogram should not delay biopsy of a clinically suspicious abnormality. [id number] Electronically Signed: Chetan Ba, at 11:11 EDT , Service support ,
--- NOTE | 2020-05-17 09:47 | ECHOD_ITS ---
Reason For Study: CM Procedure This was a 2D Doppler, Color Flow transthoracic echocardiogram. The exam was of adequate technical quality. Exam performed in department. Left Ventricle Normal LV size. 2D echocardiographic images appear compatible with a calcified apical false tendon. Left ventricular systolic function is lower limits of normal. The estimated ejection fraction is 50 %. No evidence for diastolic dysfunction. Right Ventricle Normal RV size. Normal systolic function. Atria Normal left atrium. Normal right atrium. No doppler evidence for ASD. Mitral Valve There is no mitral annular calcification. Mild diffuse mitral valve thickening. Equivocal mitral valve prolapse. Mild (1+) eccentric mitral valve insufficiency. Tricuspid Valve Normal tricuspid valve. Trivial tricuspid valve insufficiency. Right ventricular systolic pressure estimated to be 25 mmHg. Aortic Valve Trisinus/trileaflet aortic valve. Mild focal aortic valve calcification. Trivial aortic valve insufficiency. Pulmonic Valve The pulmonic valve is not well visualized. Trivial pulmonic valve insufficiency. Great Vessels Normal sized aortic root. Pericardium/Pleural No pericardial effusion. MMode/2D Measurements & Calculations LVIDd: 5.1 cm IVSd: 0.99 cm Ao root diam: 2.6 cm LVIDs: 3.9 cm LVPWd: 0.96 cm RVDd: 3.3 cm FS: 23.6 % LAV(MOD-bp): 47.3 ml LA A4 area: 12.5 cm2 LA dimension(2D): 2.8 cm LAV(MOD-bp) Indexed: 28.4 ml/m2 LAV(MOD-sp2): 60.4 ml LAV(MOD-sp4): 29.3 ml RA A4 area: 15.1 cm2 Doppler Measurements & Calculations MV E max tanvir: 50.2 cm/sec Lat Peak E' Tanvir: 6.2 cm/sec Med Peak E' Tanvir: 4.5 cm/sec MV A max tanvir: 66.4 cm/sec E/E' lat: 8.1 E/E' med: 11.3 MV E/A: 0.76 Ao V2 max: 106.8 cm/sec LV V1 max: 80.0 cm/sec PA V2 max: 71.3 cm/sec Ao max P.6 mmHg LV V1 max P.6 mmHg Ao V2 mean: 77.6 cm/sec Ao mean P.6 mmHg Ao V2 VTI: 27.0 cm TR max tanvir: 234.4 cm/sec TR max P.0 mmHg Interpretation Summary Left ventricular systolic function is lower limits of normal. The estimated ejection fraction is 50 %. 2D echocardiographic images appear compatible with a calcified apical false tendon. Mild diffuse mitral valve thickening. Equivocal mitral valve prolapse. Mild (1+) eccentric mitral valve insufficiency. Trivial tricuspid valve insufficiency. Mild focal aortic valve calcification. Trivial aortic valve insufficiency. Trivial pulmonic valve insufficiency. Right ventricular systolic pressure estimated to be 25 mmHg. No evidence for diastolic dysfunction. 2D echocardiographic studies demonstrating a small mobile fibrinous strand appearing echodensity on the ventricular aspect of the aortic valve appearing compatible with a Lambl's Excrescence. Ordering Physician: Karri Trujillo Referring Physician: Sukhjinder Zarate Performed By: Rosie Kenny, RONAK, RVT
== END ==
PROVIDERS: PCP Internal Medicine; Referring Provider Internal Medicine; Visit Provider Internal Medicine
DX: Z12.31 Encounter for screening mammogram for malignant neoplasm of breast (principal); I43 Cardiomyopathy in diseases classified elsewhere; I34.9 Nonrheumatic mitral valve disorder, unspecified; E78.5 Hyperlipidemia, unspecified
CPT/HCPCS: 77063; 77067; 93306

== ENCOUNTER → 2020-09-19 10:17 | Outpatient (CLI) | payer OTHER, SELFPAY ==
[2020-09-19 09:03] VITALS: BMI 22.8
[2020-09-19 12:50] LABS: Anion Gap 4 (5-15); BUN 25 mg/dL (7-18); BUN/Creat Ratio 21.6 RATIO (10-20); Calcium,Total 9.3 mg/dL (8.5-10.1); Chloride 108 mmol/L (98-107); Creatinine, Serum 1.16 mg/dL (0.55-1.02); EST Glomerular Filtration Rate 49 mL/min (>60); Est Glom Filt Rate - Afr Amer 60 mL/min (>60); Glucose 88 mg/dL (74-106); Potassium 4.5 mmol/L (3.5-5.1); Sodium Level 140 mmol/L (136-145)
[2020-09-19 13:15] LABS: AST(SGOT) 18 U/L (15-37); Alanine Aminotransfer ALT/SGPT 35 U/L (13-56); Albumin, Serum 3.8 g/dL (3.2-5.0); Alkaline Phosphatase 70 U/L (45-117); Bilirubin, Direct 0.18 mg/dL (0.00-0.30); Cholesterol 204 mg/dL (200); Globulin 2.9 g/dL (2.2-4.2); High Density Lipoprotein 73 mg/dL; Protein, Total 6.7 g/dL (6.4-8.2); Triglycerides 56 mg/dL; Very Low Density Lipoprotein 11 mg/dL (5-40)
== END ==
PROVIDERS: Internal Medicine Cardiovascular Disease; PCP Internal Medicine; Referring Provider Internal Medicine; Visit Provider Internal Medicine
DX: E78.5 Hyperlipidemia, unspecified (principal); I43 Cardiomyopathy in diseases classified elsewhere; E78.00 Pure hypercholesterolemia, unspecified
CPT/HCPCS: 36415; 80048; 80061; 80076

== ENCOUNTER → 2021-02-05 07:14 | Outpatient (CLI) | payer OTHER, SELFPAY ==
[2021-02-04 09:08] VITALS: BMI 22.8
[2021-02-05 07:38] LABS: Absolute Lymphocyte Count 1.83 X10^3/uL (0.83-4.51); Absolute Neutrophil Count 2.5 X10^3/uL (2.0-7.7); Basophil# 0.03 X10^3/uL; Basophil% 0.6 % (0-1); Eosinophils% 3.9 % (0-5); Hematocrit 39.2 % (37-47); Hemoglobin 12.9 g/dL (12.0-15.0); Lymphocyte # 1.83 X10^3/ul (0.83-4.51); Lymphocyte % 36.1 % (19-41); Mean Corp Hgb Conc 32.9 g/dL (32-36); Mean Corpuscular Hgb 30.4 pg (27.0-32.0); Mean Corpuscular Volume 92.2 fL (81-99); Mean Platelet Vol. 11.2 fl (6.2-12.0); Monocyte# 0.47 X10^3/uL; Monocyte% 9.3 % (0-10); NRBC Flagged by Analyzer 0 % (0-5); Neutrophil # 2.54 X10^3/uL (2.7-7.7); Neutrophil % 50.1 % (47-70); Platelet Count 174 K/mm3 (150-450); RBC Distribution Width CV 12.4 % (11.6-14.6); Red Blood Count 4.25 M/mm3 (4.2-5.4); White Blood Count 5.1 K/mm3 (4.4-11.0)
[2021-02-05 08:04] LABS: ALB/GLOB Ratio 1.1 RATIO (0.9-2.4); AST(SGOT) 24 U/L (15-37); Alanine Aminotransfer ALT/SGPT 32 U/L (13-56); Albumin, Serum 3.7 g/dL (3.2-5.0); Alkaline Phosphatase 74 U/L (45-117); Anion Gap 4 (5-15); BUN 16 mg/dL (7-18); BUN/Creat Ratio 13.3 RATIO (10-20); Calcium,Total 9.4 mg/dL (8.5-10.1); Chloride 105 mmol/L (98-107); EST Glomerular Filtration Rate 48 mL/min (>60); Est Glom Filt Rate - Afr Amer 58 mL/min (>60); Globulin 3.3 g/dL (2.2-4.2); Glucose 107 mg/dL (74-106); Potassium 4.2 mmol/L (3.5-5.1); Sodium Level 138 mmol/L (136-145)
[2021-02-13 11:45] LABS: AST(SGOT) 22 U/L (15-37); Alanine Aminotransfer ALT/SGPT 28 U/L (13-56); Albumin, Serum 3.8 g/dL (3.2-5.0); Alkaline Phosphatase 77 U/L (45-117); Bilirubin, Direct 0.15 mg/dL (0.00-0.30); Cholesterol 188 mg/dL (200); Globulin 3.4 g/dL (2.2-4.2); High Density Lipoprotein 73 mg/dL; Protein, Total 7.2 g/dL (6.4-8.2); Triglycerides 61 mg/dL; Very Low Density Lipoprotein 12 mg/dL (5-40)
== END ==
PROVIDERS: Internal Medicine Cardiovascular Disease; PCP Internal Medicine; Referring Provider Internal Medicine; Visit Provider Internal Medicine
DX: Z01.818 Encounter for other preprocedural examination (principal)
CPT/HCPCS: 36415; 80053; 80061; 80076; 85025

== ENCOUNTER → 2021-02-06 08:20 | Outpatient (CLI) | payer OTHER, SELFPAY ==
[2021-02-04 09:08] VITALS: BMI 22.8
--- NOTE | 2021-02-06 08:21 | EKG12_ITS ---
Test Reason : PRE OP Blood Pressure : / mmHG Vent. Rate : 069 BPM Atrial Rate : 069 BPM P-R Int : 158 ms QRS Dur : 096 ms QT Int : 426 ms P-R-T Axes : 071 032 049 degrees QTc Int : 456 ms Normal sinus rhythm Normal ECG Confirmed by LOUIS RAY, SANTIAGO ([id number]), division director PRANEETH ROMERO ([id number]) on 02/07/2021 11:18:31 AM Referred By: Sukhjinder Zarate Confirmed By:SANTIAGO MYERS MD
== END ==
PROVIDERS: PCP Internal Medicine; Referring Provider Internal Medicine; Visit Provider Internal Medicine
DX: Z01.810 Encounter for preprocedural cardiovascular examination (principal)
CPT/HCPCS: 93005

== ENCOUNTER → 2021-02-13 11:02 | Outpatient (CLI) | payer OTHER, SELFPAY ==
[2021-02-13 10:12] VITALS: BMI 23.1
== END ==
PROVIDERS: PCP Internal Medicine; Referring Provider Internal Medicine Cardiovascular Disease; Visit Provider Internal Medicine Cardiovascular Disease
DX: Z00.00 Encounter for general adult medical examination without abnormal findings (principal)

== ENCOUNTER → 2021-05-21 09:58 | Outpatient (CLI) | payer MEDICARE, OTHER, SELFPAY ==
[2020-09-19 09:03] VITALS: BMI 22.8
--- NOTE | 2021-05-21 10:01 | BI_ITS ---
MAMMOGRAPHY - BILATERAL SCREENING REASON FOR EXAM: Female, 66 years old. Routine annual screening examination. PERTINENT HISTORY: Mother with breast cancer. TECHNIQUE: Digital bilateral breast sánchez (3D mammographic acquisition) in the CC and MLO projections. 2-D mediolateral oblique (MLO) and craniocaudad (CC) views of both breasts were obtained. CAD: Full Field Digital Mammography with Computer Added Detection was performed. COMPARISON: Comparison is made with prior examination dated 05/17/2020 and 04/28/2019. FINDINGS: Breast Composition: The breasts are extremely dense, which lowers the sensitivity of mammography. There are no dominant masses or suspicious calcifications. No other significant abnormalities are identified. There has been no significant change since the prior study. BI/SCRN MAMM (CAD)W/SÁNCHEZ BILAT IMPRESSION: Stable bilateral screening mammogram. Yearly follow-up mammogram recommended. (A) ASSESSMENT CATEGORY: BIRADS Category 1: Negative. A letter regarding these results will be sent to the patient by the facility within 30 days. Approximately 10% of breast cancers are not detected by mammography. A normal mammogram should not delay biopsy of a clinically suspicious abnormality. [id number] Electronically Signed: Chetan Ba MD at 11:01 EDT , Service support ,
== END ==
PROVIDERS: PCP Internal Medicine; Referring Provider Student in an Organized Health Care Education/Training Program; Visit Provider Student in an Organized Health Care Education/Training Program
DX: Z12.31 Encounter for screening mammogram for malignant neoplasm of breast (principal)
CPT/HCPCS: 77063; 77067

== ENCOUNTER → 2022-02-14 | Outpatient (CLI) | payer MEDICARE, OTHER, SELFPAY ==
[2022-02-14 13:35] LABS: Absolute Lymphocyte Count 1.79 X10^3/uL (0.83-4.51); Absolute Neutrophil Count 2.9 X10^3/uL (2.0-7.7); Basophil# 0.02 X10^3/uL; Basophil% 0.4 % (0-1); Eosinophil# 0.12 X10^3/uL; Eosinophils% 2.3 % (0-5); Hematocrit 40.8 % (37-47); Hemoglobin 13.5 g/dL (12.0-15.0); Lymphocyte # 1.79 X10^3/ul (0.83-4.51); Mean Corp Hgb Conc 33.1 g/dL (32-36); Mean Corpuscular Hgb 30.8 pg (27.0-32.0); Mean Corpuscular Volume 93.2 fL (81-99); Mean Platelet Vol. 12.3 fl (6.2-12.0); Monocyte# 0.46 X10^3/uL; Monocyte% 8.7 % (0-10); NRBC Flagged by Analyzer 0 % (0-5); Neutrophil # 2.88 X10^3/uL (2.7-7.7); Neutrophil % 54.6 % (47-70); Platelet Count 199 K/mm3 (150-450); RBC Distribution Width CV 12.7 % (11.6-14.6); RBC Distribution Width SD 43.9 fl (35.1-43.9); Red Blood Count 4.38 M/mm3 (4.2-5.4); White Blood Count 5.3 K/mm3 (4.4-11.0)
[2022-02-14 14:05] LABS: ALB/GLOB Ratio 1.1 RATIO (0.9-2.4); AST(SGOT) 22 U/L (15-37); Alanine Aminotransfer ALT/SGPT 26 U/L (13-56); Albumin, Serum 3.7 g/dL (3.2-5.0); Alkaline Phosphatase 67 U/L (45-117); Anion Gap 6 (5-15); BUN 16 mg/dL (7-18); BUN/Creat Ratio 13.8 RATIO (10-20); Calcium,Total 9.1 mg/dL (8.5-10.1); Chloride 108 mmol/L (98-107); Cholesterol 180 mg/dL (200); Creatinine, Serum 1.16 mg/dL (0.55-1.02); EST Glomerular Filtration Rate 49 mL/min (>60); Est Glom Filt Rate - Afr Amer 60 mL/min (>60); Globulin 3.4 g/dL (2.2-4.2); Glucose 96 mg/dL (74-106); High Density Lipoprotein 67 mg/dL; Potassium 3.9 mmol/L (3.5-5.1); Protein, Total 7.1 g/dL (6.4-8.2); Sodium Level 141 mmol/L (136-145); Triglycerides 73 mg/dL; Very Low Density Lipoprotein 15 mg/dL (5-40)
== END | disposition home or self-care (01) ==
LOC: LAB 12:01
PROVIDERS: PCP Internal Medicine; Visit Provider Physician Assistant
DX: F32.9 Major depressive disorder, single episode, unspecified (principal); E78.5 Hyperlipidemia, unspecified; I10 Essential (primary) hypertension
CPT/HCPCS: 80053; 80061; 85025

== ENCOUNTER → 2022-05-27 | Outpatient (CLI) | payer MEDICARE, OTHER, SELFPAY ==
--- NOTE | 2022-05-27 12:57 | ECHOD_ITS ---
Reason For Study: MVP Procedure This was a 2D Doppler, Color Flow transthoracic echocardiogram. Exam performed in department. Left Ventricle Normal LV size. Apical false tendon noted. Left ventricular systolic function is lower limits of normal. The estimated ejection fraction is 50 %. No evidence for diastolic dysfunction. No regional wall motion abnormalities noted. Right Ventricle Normal RV size. Normal systolic function. Atria Normal left atrium. Normal right atrium. No doppler evidence for ASD. Mitral Valve There is no mitral annular calcification. Anterior leaflet diffuse mitral valve thickening. Trivial mitral valve insufficiency. Tricuspid Valve Normal tricuspid valve. Trivial tricuspid valve insufficiency. Right ventricular systolic pressure estimated to be 26 mmHg. Aortic Valve Trisinus/trileaflet aortic valve. Mild focal aortic valve calcification. Trivial aortic valve insufficiency. Pulmonic Valve The pulmonic valve is not well visualized. Great Vessels Normal sized aortic root. Pericardium/Pleural No pericardial effusion. MMode/2D Measurements & Calculations LVIDd: 4.8 cm IVSd: 0.98 cm Ao root diam: 3.0 cm LVIDs: 3.5 cm LVPWd: 0.70 cm LA dimension: 3.3 cm RVDd: 3.2 cm FS: 26.2 % LAV(MOD-bp): 35.7 ml LA A4 area: 15.6 cm2 RA A4 area: 16.6 cm2 LAV(MOD-bp) Indexed: 21.3 ml/m2 LAV(MOD-sp2): 34.5 ml LAV(MOD-sp4): 38.1 ml Time Measurements MV dec time: 0.14 sec Doppler Measurements & Calculations MV E max tanvir: 47.2 cm/sec Lat Peak E' Tanvir: 9.3 cm/sec Med Peak E' Tanvir: 8.2 cm/sec MV A max tanvir: 62.5 cm/sec E/E' lat: 5.1 E/E' med: 5.8 MV E/A: 0.76 MV V2 max: 77.2 cm/sec MV P1/2t max tanvir: 55.3 cm/sec Ao V2 max: 116.8 cm/sec MV max P.4 mmHg MV P1/2t: 62.4 msec Ao max P.5 mmHg MV V2 mean: 38.2 cm/sec MV dec slope: 259.9 cm/sec2 Ao V2 mean: 79.2 cm/sec MV mean P.68 mmHg MVA(P1/2t): 3.5 cm2 Ao mean P.9 mmHg MV V2 VTI: 27.1 cm Ao V2 VTI: 28.0 cm LV V1 max: 83.8 cm/sec MR max tanvir: 454.5 cm/sec PA V2 max: 71.9 cm/sec LV V1 max P.8 mmHg MR max P.6 mmHg LV V1 mean P.6 mmHg LV V1 mean: 58.4 cm/sec LV V1 VTI: 19.6 cm TR max tanvir: 238.5 cm/sec TR max P.8 mmHg ECHO/Echo Complete Interpretation Summary Left ventricular systolic function is lower limits of normal. The estimated ejection fraction is 50 %. Apical false tendon noted. Anterior leaflet diffuse mitral valve thickening. Trivial mitral valve insufficiency. Trivial tricuspid valve insufficiency. Mild focal aortic valve calcification. Trivial aortic valve insufficiency. Right ventricular systolic pressure estimated to be 26 mmHg. No evidence for diastolic dysfunction. Ordering Physician: Karri Trujillo Referring Physician: Jodi Porter Performed By: John Kramer RCS
--- NOTE | 2022-05-27 14:50 | BI_ITS ---
MAMMOGRAPHY - BILATERAL SCREENING REASON FOR EXAM: Female, 67 years old. Routine annual screening examination. PERTINENT HISTORY: Mother with breast cancer. History of prior right breast aspiration. TECHNIQUE: Digital bilateral breast sánchez (3D mammographic acquisition) in the CC and MLO projections. 2-D mediolateral oblique (MLO) and craniocaudad (CC) views of both breasts were obtained. CAD: Full Field Digital Mammography with Computer Added Detection was performed. COMPARISON: Comparison is made with prior study 05/21/2021 and 05/17/2020. FINDINGS: Breast Composition: The breasts are extremely dense, which lowers the sensitivity of mammography. There are no dominant masses or suspicious calcifications. No other significant abnormalities are identified. There has been no significant change since the prior study. BI/SCRN MAMM (CAD)W/SÁNCHEZ BILAT IMPRESSION: Stable bilateral screening mammogram. Yearly follow-up mammogram recommended. (A) ASSESSMENT CATEGORY: BIRADS Category 1: Negative. A letter regarding these results will be sent to the patient by the facility within 30 days. Approximately 10% of breast cancers are not detected by mammography. A normal mammogram should not delay biopsy of a clinically suspicious abnormality. [id number] Electronically Signed: Chetan Ba MD at 15:31 EDT ,
== END | disposition home or self-care (01) ==
LOC: CVS 12:56
PROVIDERS: PCP Internal Medicine; Referring Provider Student in an Organized Health Care Education/Training Program; Visit Provider Student in an Organized Health Care Education/Training Program
DX: R06.02 Shortness of breath (principal); I42.8 Other cardiomyopathies; I34.9 Nonrheumatic mitral valve disorder, unspecified; E78.5 Hyperlipidemia, unspecified; Z12.31 Encounter for screening mammogram for malignant neoplasm of breast
CPT/HCPCS: 77063; 77067; 93306

== ENCOUNTER → 2023-01-30 | Outpatient (CLI) | payer MEDICARE, OTHER, SELFPAY ==
[2023-01-30 12:30] LABS: Absolute Lymphocyte Count 1.74 X10^3/uL (0.83-4.51); Absolute Neutrophil Count 2.5 X10^3/uL (2.0-7.7); Basophil# 0.02 X10^3/uL; Basophil% 0.4 % (0-1); Eosinophil# 0.11 X10^3/uL; Eosinophils% 2.3 % (0-5); Hematocrit 42.6 % (37-47); Hemoglobin 13.8 g/dL (12.0-15.0); Lymphocyte # 1.74 X10^3/ul (0.83-4.51); Lymphocyte % 35.8 % (19-41); Mean Corp Hgb Conc 32.4 g/dL (32-36); Mean Corpuscular Hgb 31.2 pg (27.0-32.0); Mean Corpuscular Volume 96.2 fL (81-99); Mean Platelet Vol. 11.7 fl (6.2-12.0); Monocyte# 0.51 X10^3/uL; Monocyte% 10.5 % (0-10); NRBC Flagged by Analyzer 0 % (0-5); Neutrophil # 2.47 X10^3/uL (2.7-7.7); Neutrophil % 50.8 % (47-70); Platelet Count 181 K/mm3 (150-450); RBC Distribution Width CV 12.4 % (11.6-14.6); RBC Distribution Width SD 44.5 fl (35.1-43.9); Red Blood Count 4.43 M/mm3 (4.2-5.4); White Blood Count 4.9 K/mm3 (4.4-11.0)
[2023-01-30 12:46] LABS: Vitamin D,25 Hydroxy 55.5 ng/mL
[2023-01-30 12:56] LABS: ALB/GLOB Ratio 1.2 RATIO (0.9-2.4); AST(SGOT) 24 U/L (15-37); Alanine Aminotransfer ALT/SGPT 44 U/L (13-56); Albumin, Serum 3.8 g/dL (3.2-5.0); Alkaline Phosphatase 77 U/L (45-117); Anion Gap 4 (5-15); BUN 23 mg/dL (7-18); BUN/Creat Ratio 18.9 RATIO (10-20); Calcium,Total 9.1 mg/dL (8.5-10.1); Chloride 106 mmol/L (98-107); Cholesterol 177 mg/dL (200); Creatinine, Serum 1.22 mg/dL (0.55-1.02); EST Glomerular Filtration Rate 46 mL/min (>60); Est Glom Filt Rate - Afr Amer 56 mL/min (>60); Globulin 3.3 g/dL (2.2-4.2); Glucose 101 mg/dL (74-106); High Density Lipoprotein 69 mg/dL; Potassium 4.1 mmol/L (3.5-5.1); Protein, Total 7.1 g/dL (6.4-8.2); Sodium Level 138 mmol/L (136-145); Triglycerides 51 mg/dL; Very Low Density Lipoprotein 10 mg/dL (5-40)
== END | disposition home or self-care (01) ==
LOC: BIMLAB 09:19
PROVIDERS: PCP Internal Medicine; Referring Provider Internal Medicine; Visit Provider Internal Medicine
DX: I10 Essential (primary) hypertension (principal); E78.5 Hyperlipidemia, unspecified; M85.80 Other specified disorders of bone density and structure, unspecified site
CPT/HCPCS: 36415; 80053; 80061; 82306; 85025

== ENCOUNTER → 2023-03-18 | Outpatient (CLI) | payer MEDICARE, OTHER, SELFPAY ==
--- NOTE | 2023-03-18 13:42 | SP.MBSS_ITS ---
Modified Barium Swallow Patient Information Study Date: 03/18/23 Study Time: 13:00 Direct Billable Minutes: 100 Total Minutes procedure & reportin Diagnosis: K21.9 - Gastro-esophageal reflux disease without esophagitis Referring Physician: Sukhjinder Zarate Reason for Referral: Objectively assess swallow function, risk for aspiration and to determine recommendations for LRD and compensatory strategies to improve safety of swallow. Medical History: Patient referred by her PCP due to reports of swallowing difficulty. Patient states occasionally coughs w/ food or drink, however she attributes this d/t eating/drinking at a rapid rate w/ lg bites and sips. Patient w/ hx of GERD which she is currently managing w/ daily medication. Current Diet Ordered: Regular / Thin Mental Status: WNL Respiratory Status: Oxygenating on Room Air Penetration-Aspiration Scale Penetration-Aspiration Scale: OBJECTIVE ASSESSMENT OF SWALLOW FUNCTION (QUANTITATIVE ? PER TRIAL): PENETRATION / ASPIRATION SCALE (PALMA): 1 = does not enter airway 2 = enters airway/above vocal folds/ejected 3 = enters airway/above vocal folds/not ejected 4 = enters airway/contacts vocal folds/ejected 5 = enters airway/contacts vocal folds/not ejected 6 = enters airway/below vocal folds/ejected 7 = enters airway/below vocal folds/not ejected despite effort 8 = enters airway/below vocal folds/no effort VIDEOFLOROSCOPIC SCALE SCORE (PALMA): Grade I = aspiration of material that has penetrated into the laryngeal vestibule, intact cough reflex Grade II = aspiration < 10 % of the bolus, intact cough reflex Grade III = aspiration of < 10 % of the bolus, reduced cough reflex or aspiration of > 10 % of the bolus, intact cough reflex Grade IV = aspiration of > 10 % of the bolus, reduced cough reflex Penetration-Aspiration Scale Score Thin Liquid via teaspoon: Result: 1= does not enter airway Thin Liquid via single sip from cup: Result: 1= does not enter airway Thin Liquid via sequential sip from cup: Result: 1= does not enter airway NTL via single sip from cup: Result: 1= does not enter airway HTL via single sip from cup: Result: 1= does not enter airway Pudding: Result: 1= does not enter airway Cookie: Result: 1= does not enter airway Thin Liquid via sequential sip via straw: Result: 5= enters airways/contacts vocal folds/not ejected Oral Phase Labial Seal: No Labial Escape Tongue Control During Bolus Hold: Posterior escape of less than half of bolus Bolus Preparation/Mastication: Slow prolonged chewing/mashing with complete recollection Bolus Transport/Lingual Motion: Delayed initiation of tongue motion Oral Residue: Trace residue lining oral structures Pharyngeal Phase Initiation of Pharyngeal Swallow: Bolus head in valleculae Soft Palate Elevation: No bolus between soft palate and pharyngeal wall Laryngeal Elevation: Comp. Superior move thyroid cart w/comp. apprx arytenoid cart-epig pet Anterior Hyoid Excursion: Complete anterior movement Epiglottic Movement: Partial inversion Laryngeal Vestibule Closure at Height of Swallow: Complete; no air/contrast in laryngeal vestibule Pharyngeal Stripping Wave: Present - diminished Pharyngoesophageal Segment Opening: Parital distension and partial duration; parital obstruction of flow Tongue Base Retraction: Wide column of contrast between tongue base & post. pharyngeal wall Pharyngeal Residue: Collection of residue within or on pharyngeal structures Esophageal Phase Esophageal Clearance: Esophageal retention w/ retrograde flow below pharyng oesophageal seg. Diagnosis/Impression Diagnosis: mild oropharyngeal dysphagia R13.12 Impression: Patient presents w/ mild oropharyngeal dysphagia. Oral phase primarily marked by... - slow, but functional mastication w/ Janette Doone cookie - trace oral residue able to be independently cleared w/ double swallow - decreased bolus control w/ <1/2 of bolus spilling posteriorly to the vallecula prior to swallow onset Pharyngeal phase primarily marked by... - decreased airway closure during deglutition attributed to moderately reduced TB retraction and epiglottic inversion - penetration to the vocal folds that was NOT ejected observed w/ sequential sips of thin liquid via straw - pharyngeal residue remaining in the vallecula and pyriforms attributed to reduced TB retraction and posterior stripping wave - increased pharyngeal residues w/ consecutive sips of thin via cup or straw, however residues did decrease w/ use of multiple swallows - CP bar at C-4 Esophageal phase primarily marked by... - poor upper and lower esophageal clearance w/ all consistencies - retrograde flow in the lower esophagus seen w/ thin liquids 2x during the study - liquid wash did somewhat improve esophageal retention SUPERVISING LAW ENFORCEMENT ANALYST is recommending GI consult. Recommendations Diet: Regular Textures and Thin Liquids Compensatory Strategies: Small Bites, Small Sips, No Straws, Slow Rate, Multiple Swallows, Alternate bites/solids and sips/liquids, Sitting upright and Remain sitting upright for 30 minutes after PO intake Recommend Repeat Modified Barium Swallow: No Need for Skilled Speech Therapy Services: No Recommended Referrals: GI Consult Education Completed: 1. Described result of evaluation. and 2. Pt understands evaluation & agrees with goals and treatment plan. Status Active ST Patient: Active Contact Information [facility] Speech Therapy:: Niharika Morris M.A. CCC-SUPERVISING LAW ENFORCEMENT ANALYST Speech-Language Pathologist [place] [address] [place] [address] [email or web address] [phone]
--- NOTE | 2023-03-18 14:16 | ST.MBS ---
Modified Barium Swallow Penetration-Aspiration Scale Penetration-Aspiration Scale: OBJECTIVE ASSESSMENT OF SWALLOW FUNCTION (QUANTITATIVE ? PER TRIAL): PENETRATION / ASPIRATION SCALE (PALMA): 1 = does not enter airway 2 = enters airway/above vocal folds/ejected 3 = enters airway/above vocal folds/not ejected 4 = enters airway/contacts vocal folds/ejected 5 = enters airway/contacts vocal folds/not ejected 6 = enters airway/below vocal folds/ejected 7 = enters airway/below vocal folds/not ejected despite effort 8 = enters airway/below vocal folds/no effort VIDEOFLOROSCOPIC SCALE SCORE (PALMA): Grade I = aspiration of material that has penetrated into the laryngeal vestibule, intact cough reflex Grade II = aspiration < 10 % of the bolus, intact cough reflex Grade III = aspiration of < 10 % of the bolus, reduced cough reflex or aspiration of > 10 % of the bolus, intact cough reflex Grade IV = aspiration of > 10 % of the bolus, reduced cough reflex
== END | disposition home or self-care (01) ==
LOC: RAD 12:38
PROVIDERS: PCP Internal Medicine; Referring Provider Internal Medicine; Visit Provider Internal Medicine
DX: R13.10 Dysphagia, unspecified (principal)
CPT/HCPCS: 74230; 92611

== ENCOUNTER → 2023-06-24 | Outpatient (CLI) | payer MEDICARE, OTHER, SELFPAY ==
--- NOTE | 2023-06-24 12:17 | BI_ITS ---
MAMMOGRAPHY - BILATERAL SCREENING REASON FOR EXAM: Female, 68 years old. Routine annual screening examination. PERTINENT HISTORY: Mother with breast cancer. TECHNIQUE: Digital bilateral breast sánchez (3D mammographic acquisition) in the CC and MLO projections. 2-D mediolateral oblique (MLO) and craniocaudad (CC) views of both breasts were obtained. CAD: Full Field Digital Mammography with Computer Added Detection was performed. COMPARISON: Comparison is made with prior study dated May 27, 2022 and May 21, 2021. FINDINGS: Breast Composition: The breasts are extremely dense, which lowers the sensitivity of mammography. There are no dominant masses or suspicious calcifications. No other significant abnormalities are identified. There has been no significant change since the prior study. BI/SCRN MAMM (CAD)W/SÁNCHEZ BILAT IMPRESSION: Stable bilateral screening mammogram. Yearly follow-up mammogram recommended. (A) ASSESSMENT CATEGORY: BIRADS Category 1: Negative. A letter regarding these results will be sent to the patient by the facility within 30 days. Approximately 10% of breast cancers are not detected by mammography. A normal mammogram should not delay biopsy of a clinically suspicious abnormality. [id number] Electronically Signed: Chetan Ba MD at 11:01 EDT ,
== END | disposition home or self-care (01) ==
LOC: OPBI 12:17
PROVIDERS: PCP Internal Medicine; Referring Provider Nurse Practitioner Women's Health; Visit Provider Nurse Practitioner Women's Health
DX: Z12.31 Encounter for screening mammogram for malignant neoplasm of breast (principal)
CPT/HCPCS: 77063; 77067

== ENCOUNTER → 2023-09-09 | Outpatient (CLI) | payer MEDICARE, OTHER, SELFPAY ==
[2023-09-09 18:02] LABS: CRP < 2.90 mg/L (0.0-3.0)
[2023-09-11 15:08] LABS: Endomysial Antibody IgA Negative (Negative); Immunoglobulin A 173 mg/dL (87-352); t-Transglutaminase IgA <2 U/mL (0-3)
== END | disposition home or self-care (01) ==
LOC: MTLAB 16:44
PROVIDERS: PCP Internal Medicine; Referring Provider Internal Medicine Gastroenterology; Visit Provider Internal Medicine Gastroenterology
DX: R19.7 Diarrhea, unspecified (principal)
CPT/HCPCS: 36415; 82784; 83516; 86140; 86255

== ENCOUNTER → 2023-11-05 | Outpatient (CLI) | payer MEDICARE, OTHER, SELFPAY ==
--- OUTSIDE RECORDS SUMMARY | 2023-11-05 14:40 | XMS RPT_ITS | CCD ---
Author Name Unknown Address [address] [place] [address] Organization [facility] Care Team Providers Care Fighter Pilot Name Role Phone Gladys BLAS, Brigida Bland Unavailable Unavailable RADHA, LIBERTY Elizabeth Attending Unavailable RADHA, LIBERTY Elizabeth Primary Care Unavailable RADHALIBERTY Admitting Unavailable RADHALIBERTY Attending Unavailable RADHA, LIBERTY Elizabeth Primary Care Unavailable RADHA, LIBERTY Elizabeth Admitting Unavailable Medications Completed/Discontinued Medications Medication Drug Class(es) Dates Sig (Normalized) Sig (Original) ALBUTEROL SULFATE (3 sources) beta2-Adrenergic Agonist Start: 09-29-2016 take 2 puff(s) by inhalation four times daily as needed VENTOLIN HFA 108 (90 Base) MCG/ACT AERS INH 2 puffs Four times daily as needed ALBUTEROL SULFATE [id number] Latoya Lockett [employer] Problems Active Problems Problem Classification Problem Date Documented Date Episodic/Chronic Asthma (1 source) Asthma; Translations: [Unspecified asthma, uncomplicated] Onset: 10-08-2016 10-08-2016 Chronic Disorders of lipid metabolism (1 source) Hyperlipidemia; Translations: [Hyperlipidemia, unspecified] Onset: 11-19-2011 11-19-2011 Chronic Esophageal disorders (1 source) Gastroesophageal reflux disease; Translations: [Gastro-esophageal reflux disease without esophagitis] Onset: 11-20-2016 11-20-2016 Chronic Other upper respiratory disease (1 source) Allergic rhinitis; Translations: [Allergic rhinitis, unspecified] Onset: 10-08-2016 10-08-2016 Chronic Raina-; endo-; and myocarditis; cardiomyopathy (1 source) Cardiomyopathy in diseases classified elsewhere; Translations: [Cardiomyopathy in diseases classified elsewhere] Onset: 07-31-2011 07-31-2011 Chronic Past or Other Problems Problem Classification Problem Date Documented Da te Episodic/Chronic Malaise and fatigue (1 source) Fatigue; Translations: [Other fatigue] Onset: 06-29-2013 06-29-2013 Episodic Other aftercare (3 sources) Other chcf (current) drug therapy; Translations: [Long-term (current) use of other medications] Onset: 11-19-2011 Resolved: 04-26-2015 04-26-2015 Episodic Other lower respiratory disease (1 source) Dyspnea; Translations: [Shortness of breath] Onset: 06-29-2013 06-29-2013 Episodic Results Test Name Value Interpretation Reference Range Facil ity Vital Signs Date Time Vital Sign Value Performing Clinician [facility] 11-20-2016 10:10-0500 BMI (Body Mass Index) 21.3 kg/m2 [facility] Work Phone: 11-20-2016 10:10-0500 Body Temperature 97.5 [degF] Brigida Graham RN [facility] Work Phone: 11-20-2016 10:10-0500 BP Diastolic 72 mm[Hg] Brigida Graham RN [facility] Work Phone: 11-20-2016 10:10-0500 BP Systolic 115 mm[Hg] Brigida Graham RN [facility] Work Phone: 11-20-2016 10:10-0500 Height 165.1 cm Brigida Graham RN [facility] Work Phone: 11-20-2016 10:10-0500 Pulse (Heart Rate) 63 /min Brigida Graham RN [facility] Work Phone: 11-20-2016 10:10-0500 Respiratory Rate 18 /min Brigida Graham RN [facility] Work Phone: 11-20-2016 10:10-0500 Weight 58.06 kg Brigida Graham RN [facility] Work Phone: 10-08-2016 10:33-0500 Body Temperature 98.6 [degF] Brigida Graham RN [facility] Work Phone: 10-08-2016 10:33-0500 BSA (Body Surface Area) 1.63 m2 Brigida Graham RN [employer] Work Phone: 10-08-2016 [id number] Height 165.1 cm Brigida Graham RN [employer] Work Phone: 10-08-2016 [id number] Weight 57.27 kg Brigida Graham RN [employer] Work Phone: Encounters Encounter Date Encounter Type Care Provider Facility Start: 12-07-2020 End: 12-07-2020 Patient encounter procedure [facility] Start: 11-16-2020 End: 11-16-2020 Patient encounter procedure [facility] Procedures Date Procedure Procedure Detail Performing Clinician Start: 11-15-2019 Follow-up visit Start: 10-28-2019 Follow-up visit Start: 10-08-2016 End: 11-18-2016 Pulmonary Function Test - complete Regino Barnett DO Work Phone: Start: 09-24-2016 End: 09-24-2016 Follow Up Appt 1 year Karri Vásquez Start: 09-24-2016 End: 09-24-2016 PFM Karri Trujillo MD Start: 05-05-2016 End: 09-24-2016 *Hepatic Function Panel Karri Trujillo MD Start: 05-05-2016 End: 09-24-2016 Lipid panel [AGGREGATE] Karri Trujillo MD Start: 10-31-2015 End: 11-04-2015 *Hepatic Function Panel Karri Trujillo MD Start: 10-31-2015 End: 10-31-2015 Follow Up Appt 6 months Karri Trujillo MD Start: 10-31-2015 End: 11-04-2015 Lipid panel [AGGREGATE] Karri Trujillo MD Start: 10-31-2015 End: 10-31-2015 PFM Karri Trujillo MD Start: 04-27-2015 End: 11-02-2015 *Hepatic Function Panel Karri Trujillo MD Start: 04-27-2015 End: 04-28-2015 Documentation of current medications Karri Trujillo MD Start: 04-27-2015 End: 04-27-2015 Follow Up Appt 6 months Karri Trujillo MD Start: 04-27-2015 End: 11-02-2015 Lipid panel [AGGREGATE] Karri Trujillo MD Start: 04-27-2015 End: 04-27-2015 PFM Karri Trujillo MD Start: 03-28-2015 End: 04-26-2015 *Hepatic Function Panel Karri Trujillo MD Start: 03-28-2015 End: 04-26-2015 Lipid panel [AGGREGATE] Karri Trujillo MD Start: 09-27-2014 End: 11-02-2015 Follow Up Appt 6 months Karri Trujillo MD Start: 09-27-2014 End: 11-02-2015 PFM Karri Trujillo MD Start: 09-19-2014 End: 04-26-2015 Echocardiography Karri Trujillo MD Start: 09-18-2014 End: 04-26-2015 Echocardiography Karri Trujillo MD Start: 09-18-2014 End: 04-26-2015 Lipid panel [AGGREGATE] Karri Trujillo MD Start: 12-30-2013 End: 12-30-2013 *Hepatic Function Panel Karri Trujillo MD Start: 12-30-2013 End: 12-30-2013 Follow Up Appt Other Karri Trujillo MD Start: 12-30-2013 End: 12-30-2013 Lipid panel [AGGREGATE] Karri Trujillo MD Start: 12-30-2013 End: 12-30-2013 PFM Karri Trujillo MD Start: 06-29-2013 End: 12-13-2013 *Hepatic Function Panel Karri Trujillo MD Start: 06-29-2013 End: 06-29-2013 Follow Up Appt 6 months Karri Trujillo MD Start: 06-29-2013 End: 12-13-2013 Lipid panel [AGGREGATE] Karri Trujillo MD Start: 06-29-2013 End: 06-29-2013 PFM Karri Trujillo MD Start: 05-11-2013 End: 06-13-2013 *Hepatic Function Panel Ramirez Valdivia MD Start: 05-11-2013 End: 06-29-2013 Lipid panel [AGGREGATE] Ramirez Valdivia MD Start: 02-02-2013 End: 06-15-2013 *Hepatic Function Panel Karri Trujillo MD Start: 02-02-2013 End: 06-29-2013 Echocardiography Karri Trujillo MD Start: 02-02-2013 End: 06-29-2013 Follow Up Appt 4 months Karri Trujillo MD Start: 02-02-2013 End: 06-15-2013 Lipid panel [AGGREGATE] Karri Trujillo MD Start: 02-02-2013 End: 06-29-2013 PFM Karri Trujillo MD Start: 11-04-2012 End: 11-05-2012 *BMP Ramirez Valdivia MD Start: 11-04-2012 End: 11-05-2012 *CBC with Differential Ramirez Valdivia MD Start: 11-04-2012 End: 11-10-2012 Echocardiography Ramirez Valdivia MD Start: 11-04-2012 End: 11-04-2012 Follow Up Appt 3 months Ramirez Valdivia MD Start: 11-04-2012 End: 11-05-2012 Magnesium Ramirez Valdivia MD Start: 10-15-2012 End: 11-04-2012 *Hepatic Function Panel Ramirez Valdivia MD Start: 10-15-2012 End: 11-04-2012 Lipid panel [AGGREGATE] Ramirez Valdivia MD Start: 07-22-2012 End: 07-22-2012 Follow Up Appt 3 months Ramirez Valdivia MD Start: 07-22-2012 End: 07-22-2012 Magnesium Ramirez Valdivia MD Start: 04-22-2012 End: 04-29-2012 *BMP Ramirez Valdivia MD Start: 04-22-2012 End: 04-29-2012 *Hepatic Function Panel Ramirez Valdivia MD Start: 04-22-2012 End: 04-29-2012 Echocardiography Ramirez Valdivia MD Start: 04-22-2012 End: 04-22-2012 Follow Up Appt 3 months Ramirez Valdivia MD Start: 04-22-2012 End: 04-29-2012 Lipid panel [AGGREGATE] Ramirez Valdivia MD Start: 04-22-2012 End: 04-29-2012 Magnesium Ramirez Valdivia MD Start: 01-20-2012 End: 01-20-2012 *Hepatic Function Panel Ramirez Valdivia MD Start: 01-20-2012 End: 01-20-2012 Lipid panel [AGGREGATE] Ramirez Valdivia MD Start: 01-13-2012 End: 01-20-2012 Echocardiography Ramirez Valdivia MD Start: 01-13-2012 End: 01-13-2012 Follow Up Appt 6 weeks Ramirez Valdivia MD Start: 11-24-2011 End: 11-24-2011 *Hepatic Function Panel Ramirez Valdivia MD Start: 11-24-2011 End: 11-24-2011 Magnesium Ramirez Valdivia MD Start: 11-18-2011 End: 11-18-2011 *Hepatic Function Panel Ramirez Valdivia MD Start: 11-18-2011 End: 11-18-2011 Echocardiography Ramirez Valdivia MD Start: 11-18-2011 End: 11-18-2011 Lipid panel [AGGREGATE] Ramirez Valdivia MD Start: 10-10-2011 End: 11-18-2011 Echocardiography Ramirez Valdivia MD Start: 10-10-2011 End: 10-10-2011 Follow Up Appt 3 months Ramirez Valdivia MD Start: 09-04-2011 End: 09-04-2012 Search Consultant Ramirez Valdivia MD Start: 09-04-2011 End: 09-05-2011 Follow Up Appt 6 weeks Ramirez Valdivia MD Start: 09-04-2011 End: 09-05-2011 Follow Up Appt Other Ramirez Valdivia MD Start: 07-31-2011 End: 11-18-2011 Mri chest w/dye Ramirez Valdivia MD Plan of Treatment Date Care Activity Detail Author Start: 11-16-2017 End: 11-16-2017 Appointment Appointment [facility] Work Phone: Start: 11-20-2016 End: 11-20-2016 DMB DMB [facility] Work Phone: Start: 11-20-2016 End: 11-20-2016 Follow Up Appt 1 year Follow Up Appt 1 year [facility] Work Phone: Start: 10-08-2016 End: 10-08-2016 DMB DMB [facility] Work Phone: Start: 10-08-2016 End: 10-08-2016 Follow Up Appt 6 weeks Follow Up Appt 6 weeks [facility] Work Phone: Start: 10-08-2016 End: 11-18-2016 Pulmonary Function Test - complete Pulmonary Function Test - complete [facility] Work Phone: Start: 09-24-2016 End: 09-24-2016 *Hepatic Function Panel *Hepatic Function Panel [facility] Work Phone: Start: 09-24-2016 End: 09-24-2016 Follow Up Appt 1 year Follow Up Appt 1 year [facility] Work Phone: Start: 09-24-2016 End: 09-24-2016 Lipid panel [AGGREGATE] *Lipid Profile CC PCP [facility] Work Phone: Start: 09-24-2016 End: 09-24-2016 PFM PFM [facility] Work Phone: Start: 05-05-2016 End: 09-24-2016 *Hepatic Function Panel *Hepatic Function Panel [facility] Work Phone: Start: 05-05-2016 End: 09-24-2016 Lipid panel [AGGREGATE] *Lipid Profile CC PCP [facility] Work Phone: Start: 10-31-2015 End: 11-04-2015 *Hepatic Function Panel *Hepatic Function Panel [facility] Work Phone: Start: 10-31-2015 End: 10-31-2015 Follow Up Appt 6 months Follow Up Appt 6 months [facility] Work Phone: Start: 10-31-2015 End: 11-04-2015 Lipid panel [AGGREGATE] *Lipid Profile CC PCP [facility] Work Phone: Start: 10-31-2015 End: 10-31-2015 PFM PFM [facility] Work Phone: Start: 04-27-2015 End: 11-02-2015 *Hepatic Function Panel *Hepatic Function Panel [facility] Work Phone: Start: 04-27-2015 End: 04-27-2015 Follow Up Appt 6 months Follow Up Appt 6 months [facility] Work Phone: Start: 04-27-2015 End: 11-02-2015 Lipid panel [AGGREGATE] *Lipid Profile CC PCP [facility] Work Phone: Start: 04-27-2015 End: 04-27-2015 PFM PFM [facility] Work Phone: Start: 03-28-2015 End: 04-26-2015 *Hepatic Function Panel *Hepatic Function Panel [facility] Work Phone: Start: 03-28-2015 End: 04-26-2015 Lipid panel [AGGREGATE] *Lipid Profile CC PCP [facility] Work Phone: Start: 09-27-2014 End: 11-02-2015 Follow Up Appt 6 months Follow Up Appt 6 months [facility] Work Phone: Start: 09-27-2014 End: 11-02-2015 PFM PFM [facility] Work Phone: Start: 09-19-2014 End: 09-19-2014 Echocardiography Echocardiogram (complete) [facility] Work Phone: Start: 09-18-2014 End: 09-19-2014 *Hepatic Function Panel *Hepatic Function Panel [facility] Work Phone: Start: 09-18-2014 End: 09-19-2014 Lipid panel [AGGREGATE] *Lipid Profile CC PCP [facility] Work Phone: Start: 12-30-2013 End: 12-30-2013 *Hepatic Function Panel *Hepatic Function Panel [facility] Work Phone: Start: 12-30-2013 End: 12-30-2013 Follow Up Appt Other Follow Up Appt Other [facility] Work Phone: Start: 12-30-2013 End: 12-30-2013 Lipid panel [AGGREGATE] *Lipid Profile CC PCP [facility] Work Phone: Start: 12-30-2013 End: 12-30-2013 PFM PFM [facility] Work Phone: Start: 06-29-2013 End: 12-13-2013 *Hepatic Function Panel *Hepatic Function Panel [facility] Work Phone: Start: 06-29-2013 End: 06-29-2013 Follow Up Appt 6 months Follow Up Appt 6 months [facility] Work Phone: Start: 06-29-2013 End: 12-13-2013 Lipid panel [AGGREGATE] *Lipid Profile CC PCP [facility] Work Phone: Start: 06-29-2013 End: 06-29-2013 PFM PFM [facility] Work Phone: Start: 05-11-2013 End: 06-13-2013 *Hepatic Function Panel *Hepatic Function Panel [facility] Work Phone: Start: 05-11-2013 End: 06-29-2013 Lipid panel [AGGREGATE] *Lipid Profile [facility] Work Phone: Start: 02-02-2013 End: 06-15-2013 *Hepatic Function Panel *Hepatic Function Panel [facility] Work Phone: Start: 02-02-2013 End: 02-02-2013 Echocardiography Echocardiogram (complete) [facility] Work Phone: Start: 02-02-2013 End: 06-29-2013 Follow Up Appt 4 months Follow Up Appt 4 months [facility] Work Phone: Start: 02-02-2013 End: 06-15-2013 Lipid panel [AGGREGATE] *Lipid Profile CC [facility]CP [facility] Work Phone: Start: 02-02-2013 End: 06-29-2013 PFM PFM [facility] Work Phone: Start: 11-04-2012 End: 11-05-2012 *BMP *BMP [facility] Work Phone: Start: 11-04-2012 End: 11-05-2012 *CBC with Differential *CBC with Differential [facility] Work Phone: Start: 11-04-2012 End: 11-04-2012 Echocardiography Echocardiogram (complete) [facility] Work Phone: Start: 11-04-2012 End: 11-04-2012 Follow Up Appt 3 months Follow Up Appt 3 months [facility] Work Phone: Start: 11-04-2012 End: 11-05-2012 Magnesium *Magnesium [facility] Work Phone: Start: 10-15-2012 End: 11-04-2012 *Hepatic Function Panel *Hepatic Function Panel [facility] Work Phone: Start: 10-15-2012 End: 11-04-2012 Lipid panel [AGGREGATE] *Lipid Profile [facility] Work Phone: Start: 07-22-2012 End: 07-22-2012 Electrocardiogram, complete EKG (In office) [facility] Work Phone: Start: 07-22-2012 End: 07-22-2012 Follow Up Appt 3 months Follow Up Appt 3 months [facility] Work Phone: Start: 05-21-2012 End: 11-24-2011 *Hepatic Function Panel *Hepatic Function Panel [facility] Work Phone: Start: 05-21-2012 End: 11-24-2011 Lipid panel [AGGREGATE] *Lipid Profile [facility] Work Phone: Start: 04-22-2012 End: 04-29-2012 *BMP *BMP [facility] Work Phone: Start: 04-22-2012 End: 04-29-2012 *Hepatic Function Panel *Hepatic Function Panel [facility] Work Phone: Start: 04-22-2012 End: 04-22-2012 Echocardiography Echocardiogram (complete) [facility] Work Phone: Start: 04-22-2012 End: 04-22-2012 Follow Up Appt 3 months Follow Up Appt 3 months [facility] Work Phone: Start: 04-22-2012 End: 04-29-2012 Lipid panel [AGGREGATE] *Lipid Profile [facility] Work Phone: Start: 04-22-2012 End: 04-29-2012 Magnesium *Magnesium [facility] Work Phone: Start: 04-14-2012 End: 01-20-2012 *Hepatic Function Panel *Hepatic Function Panel [facility] Work Phone: Start: 04-14-2012 End: 01-20-2012 Lipid panel [AGGREGATE] *Lipid Profile [facility] Work Phone: Start: 01-13-2012 End: 01-13-2012 Echocardiography Echocardiogram (complete) [facility] Work Phone: Start: 01-13-2012 End: 01-13-2012 Follow Up Appt 6 weeks Follow Up Appt 6 weeks [facility] Work Phone: Start: 11-19-2011 End: 11-18-2011 *BMP *BMP [facility] Work Phone: Start: 11-19-2011 End: 11-18-2011 *Hepatic Function Panel *Hepatic Function Panel [facility] Work Phone: Start: 11-19-2011 End: 11-18-2011 Lipid panel [AGGREGATE] *Lipid Profile [facility] Work Phone: Start: 11-19-2011 End: 11-18-2011 Magnesium *Magnesium [facility] Work Phone: Start: 10-10-2011 End: 10-10-2011 Echocardiography Echocardiogram (complete) [facility] Work Phone: Start: 10-10-2011 End: 10-10-2011 Follow Up Appt 3 months Follow Up Appt 3 months [facility] Work Phone: Start: 09-04-2011 End: 09-05-2011 Search Consultant Search Consultant [facility], [address] [place] [address], [id number] [facility] Work Phone: Start: 09-04-2011 End: 09-05-2011 Follow Up Appt 6 weeks Follow Up Appt 6 weeks [facility] Work Phone: Start: 09-04-2011 End: 09-05-2011 Follow Up Appt Other Follow Up Appt Other [facility] Work Phone: Start: 07-31-2011 End: 07-31-2011 Mri chest w/dye MRI Chest with Contrast [facility] Work Phone: Patient Education [facility] Work Phone: Payers Date Payer Category Payer Unknown [id number] 1955 Unknown [id number] Medicare [id number] Summary Purpose Family History No Family History Records FoundNo Family History Records Found Advance Directives No Advanced Directives Records FoundNo Advanced Directives Records Found Additional Source Comments INFORMATION SOURCE (unrecogn ized section and content) DATE CREATED AUTHOR AUTHOR'S KRISTINA KIRK 12/18/2020 [facility] FOR RECORDS PERTAINING TO PATIENTS WHO ARE OR HAVE BEEN ENROLLED IN A CHEMICAL DEPENDENCY/SUBSTANCEABUSE PROGRAM, SOME INFORMATION MAY BE OMITTED. This clinical summary was aggregated from multiple sources. Caution should be exercised in using it in the provision of clinical care. This summary normalizes information from multiple sources, and as a consequence, information in this document may materially change the coding, format and clinical context of patient data. In addition, data may be omitted in some cases. CLINICAL DECISIONS SHOULD BE BASED ON THE PRIMARY CLINICAL RECORDS. [facility] [employer] [facility]. provides no warranty or guarantee of the accuracy or completeness of information in this document.
[2023-11-05 15:06] LABS: Absolute Lymphocyte Count 1.98 X10^3/uL (0.83-4.51); Absolute Neutrophil Count 3.7 X10^3/uL (2.0-7.7); Basophil# 0.03 X10^3/uL; Basophil% 0.5 % (0-1); Eosinophil# 0.18 X10^3/uL; Eosinophils% 2.7 % (0-5); Hematocrit 40.1 % (37-47); Hemoglobin 12.8 g/dL (12.0-15.0); Lymphocyte # 1.98 X10^3/ul (0.83-4.51); Mean Corp Hgb Conc 31.9 g/dL (32-36); Mean Corpuscular Volume 93.9 fL (81-99); Mean Platelet Vol. 11.3 fl (6.2-12.0); Monocyte# 0.71 X10^3/uL; Monocyte% 10.8 % (0-10); NRBC Flagged by Analyzer 0 % (0-5); Neutrophil # 3.67 X10^3/uL (2.7-7.7); Neutrophil % 55.7 % (47-70); Platelet Count 239 K/mm3 (150-450); RBC Distribution Width CV 12.4 % (11.6-14.6); RBC Distribution Width SD 42.7 fl (35.1-43.9); Red Blood Count 4.27 M/mm3 (4.2-5.4); White Blood Count 6.6 K/mm3 (4.4-11.0)
[2023-11-05 15:21] LABS: AST(SGOT) 20 U/L (15-37); Alanine Aminotransfer ALT/SGPT 31 U/L (13-56); Albumin, Serum 3.6 g/dL (3.2-5.0); Alkaline Phosphatase 76 U/L (45-117); Anion Gap 2 (5-15); BUN 20 mg/dL (7-18); BUN/Creat Ratio 15.5 RATIO (10-20); Calcium,Total 9.4 mg/dL (8.5-10.1); Chloride 105 mmol/L (98-107); Cholesterol 190 mg/dL (200); Creatinine, Serum 1.29 mg/dL (0.55-1.02); EST Glomerular Filtration Rate 43 mL/min (>60); Est Glom Filt Rate - Afr Amer 52 mL/min (>60); Globulin 3.5 g/dL (2.2-4.2); Glucose 106 mg/dL (74-106); High Density Lipoprotein 66 mg/dL; Potassium 4.5 mmol/L (3.5-5.1); Protein, Total 7.1 g/dL (6.4-8.2); Sodium Level 137 mmol/L (136-145); Triglycerides 67 mg/dL; Very Low Density Lipoprotein 13 mg/dL (5-40); Vitamin D,25 Hydroxy 33.9 ng/mL
== END | disposition home or self-care (01) ==
LOC: BIMLAB 13:22
PROVIDERS: PCP Internal Medicine; Visit Provider Internal Medicine
DX: I10 Essential (primary) hypertension (principal); M85.80 Other specified disorders of bone density and structure, unspecified site
CPT/HCPCS: 36415; 80053; 80061; 82306; 85025

== ENCOUNTER → 2024-02-02 | Outpatient (CLI) | payer MEDICARE, OTHER, SELFPAY ==
--- NOTE | 2024-02-02 06:29 | ECHOD_ITS ---
Reason For Study: MOREJON Procedure This was a 2D Doppler, Color Flow transthoracic echocardiogram. Exam performed in department. Left Ventricle Mildly dilated left ventricular cavity. Mild generalized hypokinesis. Estimated LVEF 40%. Normal diastology for age. Prominent apical false tendon versus apical noncompaction. Recommend cardiac MRI for further evaluation. Right Ventricle Normal right ventricle. Atria The left and right atria are normal. Mitral Valve Mild (1+) mitral valve insufficiency. Tricuspid Valve Mild tricuspid valve insufficiency. Normal pulmonary artery pressure. Aortic Valve Trisinus/trileaflet aortic valve. Pulmonic Valve Mild (1+) pulmonic valve insufficiency. Great Vessels Normal sized aortic root. Pericardium/Pleural No pericardial effusion. MMode/2D Measurements & Calculations LVIDd: 5.2 cm IVSd: 0.96 cm Ao root diam: 3.6 cm LVIDs: 4.1 cm LVPWd: 0.67 cm RVDd: 2.8 cm FS: 21.0 % LAV(MOD-bp): 54.7 ml LVAd ap4: 29.6 cm2 SV(MOD-sp4): 44.3 ml LAV(MOD-bp) Indexed: 32.2 ml/m2 LVLd ap4: 7.8 cm LAV(MOD-sp2): 51.3 ml EDV(MOD-sp4): 96.1 ml LAV(MOD-sp4): 49.8 ml EDV(sp4-el): 95.2 ml LVAs ap4: 19.5 cm2 LVLs ap4: 6.4 cm ESV(MOD-sp4): 51.8 ml ESV(sp4-el): 50.6 ml EF(MOD-sp4): 46.1 % EF(sp4-el): 46.8 % SV(sp4-el): 44.5 ml LA A4 area: 17.3 cm2 LA dimension(2D): 3.7 cm RA A4 area: 16.9 cm2 TAPSE: 2.6 cm Time Measurements MV dec time: 0.22 sec Doppler Measurements & Calculations MV E max tanvir: 63.8 cm/sec Lat Peak E' Tanvir: 10.2 cm/sec Med Peak E' Tanvir: 8.8 cm/sec MV A max tanvir: 73.2 cm/sec E/E' lat: 6.3 E/E' med: 7.3 MV E/A: 0.87 MV V2 max: 77.7 cm/sec MV P1/2t max tanvir: 63.9 cm/sec Ao V2 max: 97.0 cm/sec MV max P.4 mmHg MV P1/2t: 105.2 msec Ao max P.8 mmHg MV V2 mean: 41.2 cm/sec Ao V2 mean: 71.2 cm/sec MV mean P.78 mmHg MV dec slope: 177.9 cm/sec2 Ao mean P.3 mmHg MV V2 VTI: 31.8 cm MVA(P1/2t): 2.1 cm2 Ao V2 VTI: 25.5 cm AV (velocity ratio): 0.62 LV V1 max: 64.6 cm/sec MR max tanvir: 544.0 cm/sec PA V2 max: 76.1 cm/sec LV V1 max P.7 mmHg MR max P.4 mmHg PA V2 mean: 59.4 cm/sec LV V1 mean P.0 mmHg MR mean tanvir: 412.9 cm/sec LV V1 mean: 48.0 cm/sec MR mean P.0 mmHg LV V1 VTI: 15.8 cm MR VTI: 233.2 cm TR max tanvir: 225.3 cm/sec PI dec slope: 115.6 cm/sec2 TR max P.3 mmHg ECHO/Echo Complete Interpretation Summary Mildly dilated left ventricular cavity. Mild generalized hypokinesis. Estimated LVEF 40%. Normal diastology for age. Prominent apical false tendon versus apical noncompaction. Recommend cardiac MR I for further evaluation. Mild (1+) mitral valve insufficiency. Mild tricuspid valve insufficiency. Mild (1+) pulmonic valve insufficiency. Ordering Physician: Teresita Dong Referring Physician: Sukhjinder Zarate Performed By: Juana García, THERESACS, RVT
--- NOTE | 2024-02-08 10:53 | STRESSREP_ITS ---
Stress Test Report Date: 02/02/2024 Procedure: Exercise tolerance test/imaging study Indications: Dyspnea on exertion, fatigue Consent: Per the patient Procedure: The patient exercised on a Gian protocol for 6 minutes achieving a peak heart rate of 136 bpm (90% predicted maximal heart rate) with a peak blood pressure 162/80 mmHg and a peak MET capacity of 7 METs. The baseline ECG demonstrated normal sinus rhythm. The peak exercise ECG demonstrated no significant ischemic changes. EKG during recovery revealed no significant ischemic changes [There were no cardiac dysrhythmias pretest, during exercise, or recovery]. The functional capacity was considered normal for age. There was [no complaint of chest discomfort during exercise or recovery]. The examination was discontinued secondary to dyspnea, achieving target heart rate. Impression: 1. Technically adequate (percent predicted maximal heart rate greater than 85%) exercise tolerance test 2. Stress test is negative for exercise-induced EKG changes of ischemia 3. The test test is negative for exercise-induced chest pain 4. Functional capacity is normal for age 5. Nuclear images pending Myocardial perfusion imaging study: Technique: The patient was injected with 11.2 mCi of technetium 99m Cardiolite and subsequently rest SPECT Cardiolite nuclear imaging was obtained in the horizontal long, vertical long, and short axis views. The patient exercised on a Gian protocol. Please see above for details. The patient was injected with 34.1 mCi of technetium 99m Cardiolite and subsequently stress SPECT Cardiolite nuclear imaging was obtained in the horizontal long, vertical long, and short axis views. A gated Cardiolite study at peak stress was obtained. Interpretation: Rest and stress SPECT Cardiolite nuclear imaging status post realignment, normalization, and attenuation correction, demonstrates mild fixed defect in the apex. No significant reversibility suggestive of significant ischemia. The gated Cardiolite study demonstrates apical and septal hypokinesis. These findings are suggestive of apical myocardial infarction with no evidence of significant ischemia. The reported LVEF is 47%. Impression: 1. There is no evidence of significant ischemia. Possible prior apical myocardial infarction. 2. The gated Cardiolite study reports an LVEF of 47%. This note was generated with [employer] software. It may contain incorrect words, spelling, and punctuation that were not noted in checking the note before signing.
== END | disposition home or self-care (01) ==
LOC: CVS 06:24
PROVIDERS: PCP Internal Medicine; Referring Provider Physician Assistant Medical; Visit Provider Physician Assistant Medical
DX: R06.09 Other forms of dyspnea (principal); I42.8 Other cardiomyopathies
CPT/HCPCS: 78452; 93017; 93306; A9500; A4216

== ENCOUNTER → 2024-03-29 | Outpatient (CLI) | payer MEDICARE, OTHER, SELFPAY ==
[2024-03-29 08:03] LABS: Absolute Lymphocyte Count 2.02 X10^3/uL (0.83-4.51); Absolute Neutrophil Count 2.6 X10^3/uL (2.0-7.7); Basophil# 0.03 X10^3/uL; Basophil% 0.6 % (0-1); Eosinophil# 0.14 X10^3/uL; Eosinophils% 2.6 % (0-5); Hematocrit 39.4 % (37-47); Lymphocyte # 2.02 X10^3/ul (0.83-4.51); Mean Corpuscular Hgb 30.7 pg (27.0-32.0); Mean Corpuscular Volume 93.1 fL (81-99); Mean Platelet Vol. 11.5 fl (6.2-12.0); Monocyte# 0.51 X10^3/uL; Monocyte% 9.6 % (0-10); NRBC Flagged by Analyzer 0 % (0-5); Platelet Count 194 K/mm3 (150-450); RBC Distribution Width CV 13.1 % (11.6-14.6); RBC Distribution Width SD 44.9 fl (35.1-43.9); Red Blood Count 4.23 M/mm3 (4.2-5.4); White Blood Count 5.3 K/mm3 (4.4-11.0)
[2024-03-29 11:42] LABS: Anion Gap 7 (5-15); BUN 21 mg/dL (7-18); BUN/Creat Ratio 16.4 RATIO (10-20); Calcium,Total 9.1 mg/dL (8.5-10.1); Chloride 107 mmol/L (98-107); Creatinine, Serum 1.28 mg/dL (0.55-1.02); EST Glomerular Filtration Rate 44 mL/min (>60); Est Glom Filt Rate - Afr Amer 53 mL/min (>60); Glucose 107 mg/dL (74-106); Iron 78 ug/dL (50-170); Iron Binding Capacity,Total 311 ug/dL (250-450); Magnesium 2.3 mg/dL (1.6-2.6); PERCENT IRON SATURATION 25.1 % (15.0-55.0); Potassium 4.2 mmol/L (3.5-5.1); Sodium Level 139 mmol/L (136-145); Thyroid Stim Hormone (TSH) 1.88 uIU/mL (0.358-3.74)
== END | disposition home or self-care (01) ==
PROVIDERS: PCP Internal Medicine; Referring Provider Physician Assistant Medical; Visit Provider Physician Assistant Medical
DX: R06.09 Other forms of dyspnea (principal); R53.83 Other fatigue; E61.1 Iron deficiency
CPT/HCPCS: 36415; 80048; 83540; 83550; 83735; 84443; 85025

== ENCOUNTER → 2024-05-03 | Outpatient (CLI) | payer MEDICARE, OTHER, SELFPAY ==
--- NOTE | 2024-05-03 11:20 | RAD_ITS ---
EXAM: XR CHEST, 2 VIEWS CLINICAL INDICATION: MOREJON TECHNIQUE: Frontal and lateral views of the chest. COMPARISON: 07/29/2011 FINDINGS: LUNGS AND PLEURAL SPACES: Hyperinflated lungs with diffuse interstitial prominence consistent with COPD. No focal pneumonia. No pneumothorax. No effusion. HEART: No significant abnormality. Cardiac silhouette not enlarged. MEDIASTINUM: Central airways and mediastinal contour are unremarkable. BONES/JOINTS: Degenerative changes in the spine and shoulders. No acute fracture. SOFT TISSUES: No significant abnormality. VASCULATURE: Atherosclerosis. RAD/Chest PA and Lateral IMPRESSION: Hyperinflated lungs with diffuse interstitial prominence consistent with COPD. No focal pneumonia. Electronically Signed: Jaspal Gayle DO at 23:58 EDT ,
== END | disposition home or self-care (01) ==
LOC: RAD 11:15
PROVIDERS: PCP Internal Medicine; Referring Provider Physician Assistant Medical; Visit Provider Physician Assistant Medical
DX: R06.09 Other forms of dyspnea (principal)
CPT/HCPCS: 71046

== ENCOUNTER → 2024-05-27 | Outpatient (CLI) | payer MEDICARE, OTHER, SELFPAY | END | disposition home or self-care (01) | LOC: PSN 12:52 | PROVIDERS: PCP Internal Medicine; Referring Provider Nurse Practitioner Acute Care; Visit Provider Nurse Practitioner Acute Care | DX: R06.09 Other forms of dyspnea (principal) | CPT/HCPCS: 94060; 94726; 94729 ==

== ENCOUNTER → 2024-06-17 | Outpatient (CLI) | payer MEDICARE, OTHER, SELFPAY ==
[2024-06-17 12:30] VITALS: PULSE 100; PULSE 65; PULSE 70; PULSE 72; PULSE 74; PULSE 77; PULSE 93; O2SAT 94; O2SAT 95; O2SAT 96; O2SAT 98
--- NOTE | 2024-06-20 10:15 | PCM.PSN.6M ---
PSN 6 Minute Walk Test 6 Minute Walk Test 6 Minute Walk Test: 6 Minute Walk Test PSN:6-Minute Walk Test Start: 06/17/24 13:47 Freq: Status: Active Protocol: RESP.6MINW Document 06/17/24 12:30 EW (Rec: 06/17/24 13:50 EW [id number]) 6 Minute Walk Test Date Performed 06/17/24 Time Performed 12:30 Height 5 ft 4 in Weight: 130 lb Weight in Pounds 130.[address]: Jodi Mcdonald [employer] Assistive device used: None Pre-test Oxygen Delivery Method Room Air Pulse Ox (%) 98 Pulse Rate (60-100 beats/min) 74 Dyspnea Brigida Scale (0-10) 0 Exertion Brigida Scale (6-20) 6 1st minute Oxygen Delivery Method Room Air Pulse Ox (%) 96 Pulse Rate (60-100 beats/min) 72 2nd minute Oxygen Delivery Method Room Air Pulse Ox (%) 94 Pulse Rate (60-100 beats/min) 70 3rd minute Oxygen Delivery Method Room Air Pulse Ox (%) 96 Pulse Rate (60-100 beats/min) 77 4th minute Oxygen Delivery Method Room Air Pulse Ox (%) 95 Pulse Rate (60-100 beats/min) 93 5th minute Oxygen Delivery Method Room Air Pulse Ox (%) 96 Pulse Rate (60-100 beats/min) 100 6th minute Oxygen Delivery Method Room Air Pulse Ox (%) 98 Pulse Rate (60-100 beats/min) 72 Post-test Oxygen Delivery Method Room Air Pulse Ox (%) 98 Pulse Rate (60-100 beats/min) 65 Dyspnea Brigida Scale (0-10) 1 Exertion Brigida Scale (6-20) 8 Full Laps Walked 26 Partial Lap, Number of Tiles Walked 24 Total Distance Walked (ft) 1558 Interpretation Interpretation: The patient ambulated 1558 feet over the course of 6 minutes beginning on room air without assistive devices. Pretesting oxygen saturation was noted to be 98% on room air. With ambulation, the sukhwinder oxygen saturation was 94%. There was no significant exertional oxygen desaturation. Recommendations Recommendations: There is no indication for the use of supplemental oxygen at this time.
== END | disposition home or self-care (01) ==
LOC: PSN 12:15
PROVIDERS: PCP Internal Medicine; Referring Provider Nurse Practitioner Acute Care; Visit Provider Nurse Practitioner Acute Care
DX: R06.09 Other forms of dyspnea (principal)
CPT/HCPCS: 94618

== ENCOUNTER → 2024-09-27 | Outpatient (CLI) | payer MEDICARE, OTHER, SELFPAY ==
--- NOTE | 2024-09-27 14:56 | BI_ITS ---
MAMMOGRAPHY - BILATERAL SCREENING REASON FOR EXAM: Female, 69 years old. Routine annual screening examination. PERTINENT HISTORY: Mother with breast cancer. TECHNIQUE: Digital bilateral breast sánchez (3D mammographic acquisition) in the CC and MLO projections. 2-D mediolateral oblique (MLO) and craniocaudad (CC) views of both breasts were obtained. CAD: Full Field Digital Mammography with Computer Added Detection was performed. COMPARISON: Comparison is made with prior study June 24, 2023 and May 27, 2022. FINDINGS: Breast Composition: The breasts are extremely dense, which lowers the sensitivity of mammography. There are no dominant masses or suspicious calcifications. Stable bilateral secretory calcifications. No other significant abnormalities are identified. There has been no significant change since the prior study. BI/SCRN MAMM (CAD)W/SÁNCHEZ BILAT IMPRESSION: Stable bilateral screening mammogram. Yearly follow-up mammogram recommended. (A) ASSESSMENT CATEGORY: BIRADS Category 2: Benign. A letter regarding these results will be sent to the patient by the facility within 30 days. Approximately 10% of breast cancers are not detected by mammography. A normal mammogram should not delay biopsy of a clinically suspicious abnormality. [id number] Electronically Signed: Chetan Ba MD at 8:45 EST ,
== END | disposition home or self-care (01) ==
LOC: OPBI 14:55
PROVIDERS: PCP Internal Medicine; Referring Provider Nurse Practitioner Women's Health; Visit Provider Nurse Practitioner Women's Health
DX: Z12.31 Encounter for screening mammogram for malignant neoplasm of breast (principal)

== ENCOUNTER → 2024-11-14 | Outpatient (CLI) | payer MEDICARE, OTHER, SELFPAY ==
[2024-11-14 13:25] LABS: Absolute Lymphocyte Count 1.83 X10^3/uL (0.83-4.51); Absolute Neutrophil Count 2.6 X10^3/uL (2.0-7.7); Basophil# 0.03 X10^3/uL; Basophil% 0.6 % (0-1); Eosinophil# 0.13 X10^3/uL; Eosinophils% 2.6 % (0-5); Hematocrit 40.9 % (37-47); Hemoglobin 13.3 g/dL (12.0-15.0); Lymphocyte # 1.83 X10^3/ul (0.83-4.51); Lymphocyte % 36.1 % (19-41); Mean Corp Hgb Conc 32.5 g/dL (32-36); Mean Corpuscular Hgb 30.4 pg (27.0-32.0); Mean Corpuscular Volume 93.6 fL (81-99); Mean Platelet Vol. 11.5 fl (6.2-12.0); Monocyte# 0.47 X10^3/uL; Monocyte% 9.3 % (0-10); NRBC Flagged by Analyzer 0 % (0-5); Neutrophil # 2.61 X10^3/uL (2.7-7.7); Neutrophil % 51.4 % (47-70); Platelet Count 195 K/mm3 (150-450); RBC Distribution Width CV 12.3 % (11.6-14.6); RBC Distribution Width SD 42.7 fl (35.1-43.9); Red Blood Count 4.37 M/mm3 (4.2-5.4); White Blood Count 5.1 K/mm3 (4.4-11.0)
[2024-11-14 15:08] LABS: ALB/GLOB Ratio 1.7 RATIO (0.9-2.4); AST(SGOT) 24 U/L (<=31); Alanine Aminotransfer ALT/SGPT 20 U/L (<=34); Albumin, Serum 4.2 g/dL (3.4-4.8); Alkaline Phosphatase 68 U/L (35-104); Anion Gap 12 (5-15); BUN 22 mg/dL (4-19); BUN/Creat Ratio 19.5 RATIO (10-20); Calcium 9.4 mg/dL (7.6-11.0); Carbon Dioxide 24.9 mmol/L (22.0-29.0); Chloride 106 mmol/L (96-108); Creatinine, Serum 1.14 mg/dL (0.70-1.20); EST Glomerular Filtration Rate 51 (>60); Globulin 2.5 g/dL (2.2-4.2); Glucose 100 mg/dL (70-99); Potassium 4.8 mmol/L (3.3-5.1); Protein, Total 6.7 g/dL (5.9-8.4); Sodium Level 143 mmol/L (133-145); Total Bilirubin 0.26 mg/dL (0.00-1.30)
[2024-11-14 21:36] LABS: Cholesterol 181 mg/dL (<=200); High Density Lipoprotein 67 mg/dL; Low Density Lipoprotein Calc. 96 mg/dL; Triglycerides 90 mg/dL; Very Low Density Lipoprotein 18 mg/dL (5-40); cholesterol:hdl ratio screen 2.71
== END | disposition home or self-care (01) ==
LOC: BIMLAB 08:23
PROVIDERS: PCP Internal Medicine; Visit Provider Internal Medicine
DX: I10 Essential (primary) hypertension (principal); M85.80 Other specified disorders of bone density and structure, unspecified site
CPT/HCPCS: 36415; 80053; 80061; 82306; 85025

== ENCOUNTER 2024-12-08 01:51 | Inpatient (IN) | payer MEDICARE, OTHER, SELFPAY ==
[2024-12-08] VITALS (42 sets, daily range): BP systolic 102–156; BP diastolic 49–85; PULSE 72–95; RESP 13–25; TEMP 36.5–36.7; O2SAT 87–98; BMI 24.2; BMI 23.9
--- NOTE | 2024-12-08 02:10 | ED.VIS.DYS ---
HPI History of Present Illness Chief Complaint: Shortness of Breath Informant: patient Onset/Context/Timing Onset: Days Context: gradual Timing: Waxes and wanes Quality: Positive for Dyspnea on exertion Worsened by: Exertion Relieved by: Albuterol Associated Symptoms cough; Negative for rhinorrhea, post nasal drip, fever, sore throat, chills, clear sputum, white sputum, yellow sputum or green sputum Chest Pain: Positive for Pressure and Tightness Narrative Narrative: Patient presents with shortness of breath that has been getting progressively worse over the past few days. Patient states her mother has been sick recently with congestive heart failure. Patient states that she has a history of asthma and has been using her albuterol more frequently. Patient states this has been helping until tonight. Patient states her breathing has been waxing and waning over the past several days. Patient states her breathing is worse with exertion. Patient admits to a cough but denies any sputum production. Patient admits to some tightness and heaviness in her chest. Patient states it radiates up into her throat. Patient states it comes and goes. Patient denies any nausea or vomiting. Patient denies any fevers or chills. PE Risk Factors: Negative for Cancer, OCP + Smoking + > 35, Prior DVT or PE, Recent immobilization, Recent surgery or Recent travel [facility] Medical History Irregular heart beat Swallowing difficulty Osteopenia Hypertension History of COVID-19 Hoarseness Nonrheumatic mitral valve disorder Osteoarthritis Allergic rhinitis Idiopathic cardiomyopathy Hx of skin cancer, basal cell Depression Carpal tunnel syndrome Cardiomyopathy in disease classified elsewhere Hyperlipidemia SOB (shortness of breath) Fatigue Asthma GERD (gastroesophageal reflux disease) Home Medications ?Medication ?Instructions ?Recorded ?Last Taken ?Type metronidazole 1 % topical gel 60 g TP PRN PRN ROSECEA 03/29/18 Unknown History calcium 600 mg (as 600 cap PO BID 03/23/20 Unknown History carbonate)-vitamin D3 12.5 mcg (500 unit) capsule (Calcium with Vit D3) albuterol sulfate 90 mcg/actuation 2 puff inhalation Q6H PRN 05/06/21 Unknown Rx aerosol inhaler (Ventolin HFA) shortness of breath or wheezing #3 device turmeric 100 mg-maryann 150 1 cap PO DAILY 04/30/23 Unknown History mg-olive 50 mg-oreg 150 mg-capryl capsule sacubitril 49 mg-valsartan 51 mg 1 tab PO BID #180 tabs 02/19/24 Unknown Rx tablet (Entresto) omeprazole 40 mg capsule,delayed 40 mg PO DAILY #90 caps 06/29/24 Unknown Rx release budesonide 180 mcg/actuation 1 inh inhalation DAILY 3 months #1 07/14/24 Unknown Rx breath activated powder inhaler ea (Pulmicort Flexhaler) bupropion HCl 300 mg 24 hr tablet, See Rx Instructions .Route 08/22/24 Unknown Rx extended release .COMPLEX #90 tabs carvedilol 12.5 mg tablet 12.5 mg PO BID Dose has been 08/22/24 Unknown Rx decreased. Pt is out of med. #180 tabs pravastatin 20 mg tablet 20 mg PO QHS CHOLESTEROL #90 tabs 11/15/24 Unknown Rx Allergy/AdvReac Type Severity Reaction Status Date / Time No Known Allergies Allergy Verified 12/08/24 01:55 Family History Father CAD (coronary artery disease) Myocardial infarction, Onset Age: 53 passed Mother Heart disease Afib Breast cancer Sister Cancer endometrial, uterine Surgical History H/O repair of rotator cuff History of carpal tunnel surgery History of knee replacement procedure of right knee History of section History of hip replacement Status post trigger finger release history of meniscus repair Social History household members: spouse current occupational status: retired Smoking Status: Never smoker second hand exposure: Yes alcohol intake: never substance use type: does not use caffeine: Yes (chocolate, herbal tea) Type: other eating out: other details: 1-2 x a month what type of physical activity do you participate in: walking, aerobics and weight training frequency: 5-6 times per week seatbelt use: always do you feel safe at home: Yes additional social history: - [employer]- Retired ROS ROS ED Constitutional Constitutional ED: Denies chills or fever(s) Eyes Eyes: Denies blurry vision or change in vision ENT ENT ED: Denies rhinorrhea or sore throat Cardiovascular Cardiovascular: Reports chest pain; Denies palpitations Respiratory/Chest Respiratory/Chest: Reports cough and dyspnea Gastrointestinal Gastrointestinal: Denies nausea or vomiting Genitourinary Genitourinary ED: Denies dysuria or hematuria Musculoskeletal Musculoskeletal: Denies back pain or neck pain Integumentary Denies abscess or rash Neurologic Neurologic: Denies headache(s) or weakness Allergic/Immunologic Allergic/Immunologic ED: Denies mouth swelling or urticaria EXAM Physical Exam Const Vital Signs: 12/08/24 01:52 12/08/24 01:56 12/08/24 02:33 Temperature 98.1 F Temperature Source Oral Pulse Rate 87 88 Respiratory Rate 18 22 H Respiratory Effort Normal Non-Labored Respiratory Depth Normal Respiratory Pattern Normal Tachypnea Blood Pressure 156/85 H Blood Pressure Mean 108 Pulse Ox 95 Oxygen Delivery Method Room Air Room Air Oxygen Flow Rate (L/min) 12/08/24 02:44 12/08/24 03:44 12/08/24 03:51 Temperature Temperature Source Pulse Rate 84 78 93 Respiratory Rate 18 14 Respiratory Effort Respiratory Depth Respiratory Pattern Blood Pressure 136/63 H 146/73 H Blood Pressure Mean 97 Pulse Ox 98 90 Oxygen Delivery Method Room Air Oxygen Flow Rate (L/min) 12/08/24 03:52 12/08/24 04:03 12/08/24 04:03 Temperature Temperature Source Pulse Rate 87 78 Respiratory Rate 15 Respiratory Effort Respiratory Depth Respiratory Pattern Blood Pressure 146/73 H 107/49 L Blood Pressure Mean 68 Pulse Ox 88 92 Oxygen Delivery Method Room Air Nasal Cannula Oxygen Flow Rate (L/min) 2 12/08/24 04:18 12/08/24 05:00 12/08/24 06:03 Temperature Temperature Source Pulse Rate 83 77 89 Respiratory Rate 16 18 18 Respiratory Effort Respiratory Depth Respiratory Pattern Normal Blood Pressure 122/69 H 133/75 H Blood Pressure Mean 86 94 Pulse Ox 96 93 Oxygen Delivery Method Nasal Cannula Room Air Oxygen Flow Rate (L/min) 2 12/08/24 06:12 12/08/24 06:17 Temperature 97.7 F L Temperature Source Pulse Rate 82 86 Respiratory Rate 20 H 16 Respiratory Effort Respiratory Depth Respiratory Pattern Blood Pressure 133/75 H 112/83 H Blood Pressure Mean 94 92 Pulse Ox 92 92 Oxygen Delivery Method Nasal Cannula Oxygen Flow Rate (L/min) 2 Positive well nourished and well developed Constitutional Narrative: BMI is 24.2 General Appearance ED: well developed and NAD HEENT Reports moist mucous membranes atraumatic Neck supple, no meningeal signs and no JVD Resp normal respiratory effort Auscultation: wheezes expiratory wheezes and lower bilaterally and diminished lung sounds bilateral lower Cardio regular rate and regular rhythm GI non-tender and non-distended Palpation: soft Neuro oriented x3, CN's II-XII intact bilaterally and no sensory deficits noted William Coma Scale: document GCS findings Spontaneous Obeys Commands Oriented 15 Sensorium / Orientation: alert Speech: speech normal Motor Exam: strength 5/5 throughout Psych mental status grossly normal MDM MDM MDM Narrative Medical decision making narrative: Differential diagnosis includes pneumonia, bronchitis, viral illness, pneumothorax, congestive heart failure, cardiac dysrhythmia, cardiac ischemia, and anxiety. EKG will be obtained to assess for cardiac dysrhythmia and cardiac ischemia. Chest x-ray will be obtained to assess for pneumonia and pneumothorax. CBC will be obtained to assess for leukocytosis and anemia. Basic metabolic profile will be obtained to assess for electrolyte abnormality and renal function. High-sensitivity troponin will be obtained to assess for cardiac ischemia. 2-hour repeat high-sensitivity troponin will be obtained to assess for ongoing cardiac ischemia. COVID-19, influenza, and RSV PCR will be obtained to assess for viral illness. Lab Data Attestation: I reviewed the patient's lab results. Lab results narrative: CBC was reviewed. There is a leukocytosis of 18.4. The remainder is within normal limits. Basic metabolic profile was reviewed and was essentially within normal limits. Glucose was mildly elevated at 130. High-sensitivity troponin was reviewed and was slightly elevated at 22. COVID-19 PCR was reviewed and was negative. Influenza PCR was reviewed and was negative for influenza A and influenza B. RSV PCR was reviewed and was negative. 2-hour repeat high-sensitivity troponin was reviewed and was 15. Labs: Laboratory Results - last 24 hr 12/08/24 12/08/24 02:39 04:48 WBC 18.4 H RBC 4.29 Hgb 13.1 Hct 37.9 MCV 88.3 MCH 30.5 MCHC 34.6 RDW Std Deviation 38.5 RDW Coeff of Jhonathan 11.9 Plt Count 236 MPV 10.3 Immature Gran % (Auto) 0.400 Neut % (Auto) 86.8 H Lymph % (Auto) 6.1 L Mccormick % (Auto) 5.4 Eos % (Auto) 0.9 Baso % (Auto) 0.4 Absolute Neuts (auto) 15.9 H Absolute Lymphs (auto) 1.12 Nucleated RBC % 0 Sodium 138 Potassium 4.2 Chloride 102 Carbon Dioxide 24.2 Anion Gap 12 BUN 16 Creatinine 1.11 Estim Creat Clear Calc 40.14 L Est GFR (MDRD) Non-Af 53 L BUN/Creatinine Ratio 14.3 Glucose 130 H Calcium 9.4 Troponin T High Sens 22 H Troponin T Hi Sens 2 Hr 15 H Radiography Chest X-Ray - ED: 2 View, Read by ED Physician, Read by Radiologist and - (There is peribronchial cuffing consistent with bronchitis/reactive airway disease.) Diagnostic Testing: Clinical Impression(s) from Imaging Studies Chest X-Ray 12/08/24 02:28 IMPRESSION: Question appearance of bilateral yjuen-hlkmlln-osvs-left lower lung peribronchial cuffing, possible bronchitis/reactive airway disease, clinically correlate. No focal consolidation. Slight blunting of the posterior recesses on the lateral view is similar to the prior study considering the obliquity and may represent pleural thickening versus tiny pleural fluid. Reading Location: [facility] PA and lateral chest x-ray was obtained. There are 2 views. On my independent interpretation, there is some peribronchial cuffing consistent with reactive airway disease. There is no infiltrate noted. There is no cardiomegaly noted. Bony thorax is normal. Radiologist also interpreted the x-rays and agrees. EKG Initial EKG: Attestation: I personally reviewed and interpreted this EKG as follows: Interpretation: Sinus Rhythm (87), No Acute Injury Pattern and LAFB Comments: EKG was obtained. On my independent interpretation, it showed a normal sinus rhythm with a rate of 87. NH interval, QRS interval, and QTc intervals were all normal. There is left axis deviation at -63. There is a left anterior fascicular block noted. There are no acute ST or T wave changes. Prior EKG tracings: available for review Prior: Unchanged (From the EKG from the stress test from 02/02/2024) Management Discussion w/another healthcare provider: Hospitalist (Dr. Manning) Treatment and Re-Evaluation :: Patient was given a DuoNeb aerosol here. Patient was ordered aspirin but she declined this. Patient was ordered sublingual nitroglycerin. Patient's oxygen saturation dropped to 88% on room air. Patient was started on oxygen. Patient was given a repeat albuterol aerosol. Patient felt better after this. Patient was advised of her findings. Patient was ambulated on room air and her oxygen saturation started at 92 and went to 89. Because of this, I recommended admission for observation. Patient was given a dose of prednisone. Case was discussed with the hospitalist. He recommended obtaining a CTA of the chest to assess for pulmonary etiology of the leukocytosis as well as getting a urinalysis. He will admit the patient to his service. He also recommended starting the patient on Rocephin. This was ordered. Discharge Plan Triage Chief Complaint: Shortness of Breath ED Provider: Willis Bustamante Dx/Rx/DC Orders Clinical Impression: Asthma exacerbation, Hypoxia, Leukocytosis Prescriptions: No Action calcium carbonate-vitamin D3 [Calcium 600 with Vitamin D3] 600 mg(1,500mg) -500 unit capsule 600 cap PO BID Ventolin HFA 90 mcg/actuation HFA aerosol inhaler 2 puff INHALATION Q6H PRN (Reason: shortness of breath or wheezing) Qty: 3 4RF qxcofjos-cxro-revqm-oreg-capry 100 mg-150 mg- 50 mg-150 mg capsule 1 cap PO DAILY Pulmicort Flexhaler 180 mcg/actuation aerosol powdr breath activated 1 inh INHALATION DAILY 90 Days Qty: 1 11RF metronidazole 60 GM gel 60 g TP PRN PRN (Reason: ROSECEA) Entresto 49-51 mg tablet 1 tab PO BID Qty: 180 3RF omeprazole 40 mg capsule,delayed release(DR/EC) 40 mg PO DAILY Qty: 90 1RF bupropion HCl 300 mg tablet extended release 24 hr See Rx Instructions .ROUTE .COMPLEX Qty: 90 1RF Dose Instruction: TAKE 1 TABLET BY MOUTH DAILY Rx Instructions: TAKE 1 TABLET BY MOUTH DAILY carvedilol 12.5 mg tablet 12.5 mg PO BID Qty: 180 3RF Rx Instructions: must administer with a meal/food pravastatin 20 mg tablet 20 mg PO QHS Qty: 90 3RF Primary Care Provider: Sukhjinder Zarate Referrals: Sukhjinder Zarate MD [Primary Care Provider] - Print Language: Sammarinese Disposition Disposition: Acute Care Hospital [facility]
--- NOTE | 2024-12-08 02:28 | RAD_ITS ---
EXAM: Chest PA and lateral CLINICAL HISTORY: Dyspnea COMPARISON: 05/03/2024 TECHNIQUE: PA and lateral views of the chest FINDINGS: Question appearance of bilateral tqoap-erpeeut-nzam-left lower lung peribronchial cuffing, possible bronchitis/reactive airway disease, clinically correlate. No focal consolidation. Pulmonary vascularity appears within limits. Slight blunting of the posterior recesses on the lateral view is similar to the prior study considering the obliquity and may represent pleural thickening versus tiny pleural fluid. The cardiac and mediastinal contours appear within limits. Multilevel thoracic spondylosis/discogenic change again noted. RAD/Chest PA and Lateral IMPRESSION: Question appearance of bilateral cznhn-qrnojdr-kygu-left lower lung peribronchi al cuffing, possible bronchitis/reactive airway disease, clinically correlate. No focal consolidation. Slight blunting of the posterior recesses on the lateral view is similar to the prior study considering the obliquity and may represent pleural thickening versus tiny pleural fluid. Reading Location: [id number]
--- NOTE | 2024-12-08 02:28 | EKG12_ITS ---
Test Reason : DYSRHYTHMIA Blood Pressure : */* mmHG Vent. Rate : 87 BPM Atrial Rate : 87 BPM P-R Int : 168 ms QRS Dur : 92 ms QT Int : 380 ms P-R-T Axes : 80 -63 5 degrees QTcB Int : 457 ms Normal sinus rhythm Left anterior fascicular block Abnormal ECG Confirmed by LOUIS RAY, SANTIAGO ([id number]), publishing editor HARPAL ZAMORA ([id number]) on 12/09/2024 8:20:07 AM Referred By: CHANA Confirmed By: SANTIAGO MYERS MD
[2024-12-08] MEDS: Ipratropium/Albuterol Sulfate 3 ML AMPUL.NEB INHALATION ×2 (02:33→20:39)
[2024-12-08 03:01] LABS: Absolute Lymphocyte Count 1.12 X10^3/uL (0.83-4.51); Absolute Neutrophil Count 15.9 X10^3/uL (2.0-7.7); Basophil# 0.07 X10^3/uL; Basophil% 0.4 % (0-1); Eosinophil# 0.16 X10^3/uL; Eosinophils% 0.9 % (0-5); Hematocrit 37.9 % (37-47); Hemoglobin 13.1 g/dL (12.0-15.0); Lymphocyte # 1.12 X10^3/ul (0.83-4.51); Lymphocyte % 6.1 % (19-41); Mean Corp Hgb Conc 34.6 g/dL (32-36); Mean Corpuscular Hgb 30.5 pg (27.0-32.0); Mean Corpuscular Volume 88.3 fL (81-99); Mean Platelet Vol. 10.3 fl (6.2-12.0); Monocyte% 5.4 % (0-10); NRBC Flagged by Analyzer 0 % (0-5); Neutrophil # 15.94 X10^3/uL (2.7-7.7); Neutrophil % 86.8 % (47-70); Platelet Count 236 K/mm3 (150-450); RBC Distribution Width CV 11.9 % (11.6-14.6); RBC Distribution Width SD 38.5 fl (35.1-43.9); Red Blood Count 4.29 M/mm3 (4.2-5.4); White Blood Count 18.4 K/mm3 (4.4-11.0)
[2024-12-08 03:05] LABS: Anion Gap 12 (5-15); BUN 16 mg/dL (4-19); BUN/Creat Ratio 14.3 RATIO (10-20); Calcium,Total 9.4 mg/dL (7.6-11.0); Carbon Dioxide 24.2 mmol/L (21.0-32.0); Chloride 102 mmol/L (98-108); Creatinine, Serum 1.11 mg/dL (0.70-1.20); EST Glomerular Filtration Rate 53 (>60); Estimated Creatinine Clearance 40.14 ml/min (50-250); Glucose 130 mg/dL (70-99); Potassium 4.2 mmol/L (3.3-5.1); Sodium Level 138 mmol/L (133-145); Troponin T High Sensitivity 22 ng/L (<=14)
[2024-12-08] MEDS: Nitroglycerin SL (ED/IMG/CATH) 0.4 MG TABLET SL ×2 (03:44→03:52)
[2024-12-08] MEDS: Albuterol 2.5 MG/3 ML VIAL.NEB. INHALATION (04:18)
[2024-12-08 05:24] LABS: Troponin T High Sens 2 HR 15 ng/L (<=14)
[2024-12-08] MEDS: predniSONE 20 MG Tablet 60 MG PO (06:16)
--- NOTE | 2024-12-08 06:23 | PCM.HP.STD ---
[facility] - [facility] Date of Admission: 12/08/24 Date of Service: 12/08/24 Chief Complaint: SOB and Wheezing. 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 with preserved lung volumes and diffusion capacity, with FEV1 of ~77% of predicted, history of allergic rhinitis, history of idiopathic cardiomyopathy, history of nonrheumatic mitral valve disorder, history of irregular heart beat, history of COVID-19, history of CTS; s/p release, history of basal cell carcinoma of the skin, history of rosacea; on topical metronidazole, history of depression; on bupropion, GERD; with history of swallowing difficulty on pantoprazole, osteoporosis and OA; with history of Right THR (2018), history of Right TKR and meniscus repair who presents to [facility] ER complaining of SOB and wheezing. Ms. Dawn reports her symptoms began approximately 3 days prior to admission with the gradual-onset of MOREJON that with wheezing. She states she has been using her albuterol rescue inhaler more frequently and it had been helping her - until yesterday evening. She admits her symptoms are worse with exertion and that her symptoms are very similar to her previous asthma exacerbations. She admits to a nonproductive cough along with an intermittent sensation of heaviness and tightness in her chest that radiates up into her throat. She denies associated fever, chills, nausea, vomiting, diarrhea, constipation, abdominal pain, palpitations, heart racing or lower extremity edema. In the ER she was noted to have Leukocytosis of 18.4K present on admission with CXR revealing questionable appearance of bilateral Right > Left lower lung peribronchial cuffing with possible Bronchitis/RAD with no focal consolidation along with slight blunting of the posterior recesses on the lateral view similar to previous study and may represent pleural thickening versus tiny pleural fluid. I spoke to the ER physician to request a CT scan of the chest and UA to complete her evaluation with results pending at this time. She was then diagnosed with AE Asthma with suspected evolving Acute Bacterial Bronchitis complicated by clinical evidence of Respiratory Insufficiency and she was then admitted to the general medical floor for ongoing care for a stay that is expected to extend beyond 2 midnights. COUNTS INCLUDE 234 BEDS AT THE [facility] Medical History Irregular heart beat Swallowing difficulty Osteopenia Hypertension History of COVID-19 Hoarseness Nonrheumatic mitral valve disorder Osteoarthritis Allergic rhinitis Idiopathic cardiomyopathy Hx of skin cancer, basal cell Depression Carpal tunnel syndrome Cardiomyopathy in disease classified elsewhere Hyperlipidemia SOB (shortness of breath) Fatigue Asthma GERD (gastroesophageal reflux disease) Home Medications ?Medication ?Instructions ?Recorded ?Last Taken ?Type metronidazole 1 % topical gel 60 g TP PRN PRN ROSECEA 03/29/18 Unknown History calcium 600 mg (as 600 cap PO BID 03/23/20 Unknown History carbonate)-vitamin D3 12.5 mcg (500 unit) capsule (Calcium with Vit D3) albuterol sulfate 90 mcg/actuation 2 puff inhalation Q6H PRN 05/06/21 Unknown Rx aerosol inhaler (Ventolin HFA) shortness of breath or wheezing #3 device turmeric 100 mg-maryann 150 1 cap PO DAILY 04/30/23 Unknown History mg-olive 50 mg-oreg 150 mg-capryl capsule sacubitril 49 mg-valsartan 51 mg 1 tab PO BID #180 tabs 02/19/24 Unknown Rx tablet (Entresto) omeprazole 40 mg capsule,delayed 40 mg PO DAILY #90 caps 06/29/24 Unknown Rx release budesonide 180 mcg/actuation 1 inh inhalation DAILY 3 months #1 07/14/24 Unknown Rx breath activated powder inhaler ea (Pulmicort Flexhaler) bupropion HCl 300 mg 24 hr tablet, See Rx Instructions .Route 08/22/24 Unknown Rx extended release .COMPLEX #90 tabs carvedilol 12.5 mg tablet 12.5 mg PO BID Dose has been 08/22/24 Unknown Rx decreased. Pt is out of med. #180 tabs pravastatin 20 mg tablet 20 mg PO QHS CHOLESTEROL #90 tabs 11/15/24 Unknown Rx Allergy/AdvReac Type Severity Reaction Status Date / Time No Known Allergies Allergy Verified 12/08/24 01:55 Family History Father CAD (coronary artery disease) Myocardial infarction, Onset Age: 53 passed Mother Heart disease Afib Breast cancer Sister Cancer endometrial, uterine Surgical History H/O repair of rotator cuff History of carpal tunnel surgery History of knee replacement procedure of right knee History of section History of hip replacement Status post trigger finger release history of meniscus repair Social History household members: spouse current occupational status: retired Smoking Status: Never smoker second hand exposure: Yes alcohol intake: never substance use type: does not use caffeine: Yes (chocolate, herbal tea) Type: other eating out: other details: 1-2 x a month what type of physical activity do you participate in: walking, aerobics and weight training frequency: 5-6 times per week seatbelt use: always do you feel safe at home: Yes additional social history: - Tyson- Retired ROS ROS Narrative Review of Systems: Constitutional: Patient denies fever or chills. Eyes: Patient denies changes in vision or discharge from eyes. ENT: Patient denies runny nose, sore throat or ear pain. Resp: Patient admits to increasing MOREJON with wheezing and more frequent use of rescue inhaler as per HPI. CV: Patient admits to chest heaviness and tightness but she denies palpitations, heart racing or LE edema. GI: Patient denies abdominal pain, nausea, vomiting, diarrhea or constipation. : Patient denies dysuria or hematuria. MSK: Patient denies arthralgias or myalgias. Skin: Patient admits to rosacea but she denies wounds, abscess or jaundice. Psych: Patient admits to increased life-stress due to caring for her ailing mother who is currently admitted in the ICU but she denies SI or HI. Neuro: Patient denies headache, paresthesias or focal neurologic deficits. Allergy: Patient denies lip swelling, tongue swelling or urticaria. Hematology: Patient denies easy bleeding or easy bruisability. Endocrinology: Patient denies polyuria, polydipsia, polyphagia or heat/cold intolerance. 14 point ROS otherwise negative except for positives noted above in HPI. Vital Signs Vital Signs Vital Signs: 12/08/24 01:52 12/08/24 01:56 12/08/24 02:33 Temperature 98.1 F Temperature Source Oral Pulse Rate 87 88 Respiratory Rate 18 22 H Respiratory Effort Normal Non-Labored Respiratory Depth Normal Respiratory Pattern Normal Tachypnea Blood Pressure 156/85 H Blood Pressure Mean 108 Pulse Ox 95 Oxygen Delivery Method Room Air Room Air Oxygen Flow Rate (L/min) 12/08/24 02:44 12/08/24 03:44 12/08/24 03:51 Temperature Temperature Source Pulse Rate 84 78 93 Respiratory Rate 18 14 Respiratory Effort Respiratory Depth Respiratory Pattern Blood Pressure 136/63 H 146/73 H Blood Pressure Mean 97 Pulse Ox 98 90 Oxygen Delivery Method Room Air Oxygen Flow Rate (L/min) 12/08/24 03:52 12/08/24 04:03 12/08/24 04:03 Temperature Temperature Source Pulse Rate 87 78 Respiratory Rate 15 Respiratory Effort Respiratory Depth Respiratory Pattern Blood Pressure 146/73 H 107/49 L Blood Pressure Mean 68 Pulse Ox 88 92 Oxygen Delivery Method Room Air Nasal Cannula Oxygen Flow Rate (L/min) 2 12/08/24 04:18 12/08/24 05:00 12/08/24 06:03 Temperature Temperature Source Pulse Rate 83 77 89 Respiratory Rate 16 18 18 Respiratory Effort Respiratory Depth Respiratory Pattern Normal Blood Pressure 122/69 H 133/75 H Blood Pressure Mean 86 94 Pulse Ox 96 93 Oxygen Delivery Method Nasal Cannula Room Air Oxygen Flow Rate (L/min) 2 12/08/24 06:12 12/08/24 06:17 Temperature 97.7 F L Temperature Source Pulse Rate 82 86 Respiratory Rate 20 H 16 Respiratory Effort Respiratory Depth Respiratory Pattern Blood Pressure 133/75 H 112/83 H Blood Pressure Mean 94 92 Pulse Ox 92 92 Oxygen Delivery Method Nasal Cannula Oxygen Flow Rate (L/min) 2 Weight Weight: 141 lb 1.533 oz Body Mass Index (BMI) 24.2 Physical Exam Const alert, oriented x3 and average body habitus Constitutional Narrative: Mildly labored respirations noted. General Appearance: cooperative HEENT normocephalic, head/scalp atraumatic, hearing grossly normal bilaterally and moist oral mucous membranes Eyes PERRL, EOMs intact bilaterally and conjunctivae normal Neck no lymphadenopathy, supple and no JVD Resp Resp Narrative: Diminished breath sounds throughout with diffuse expiratory wheezes. Auscultation: wheezes Cardio regular rate and regular rhythm GI normal to inspection, nondistended, normoactive bowel sounds, soft to palpation, non-tender and non-distended Extremity normal to inspection, full ROM and no clubbing, cyanosis or edema Skin Skin Narrative: Patient has no evidence of rash, wounds or abscess. Neuro oriented x3, CN's II-XII intact bilaterally, moves all extremities and no focal motor deficits Sensorium / Orientation: awake, alert, oriented to person, oriented to place and oriented to time Speech: speech normal Motor Exam: strength 5/5 throughout Psych affect normal Results Medical Records Data Attestation: I reviewed the patient's medical records Lab / Micro Data Attestation: I reviewed the patient's lab results. 12/08/24 02:39 12/08/24 02:39 Labs: Laboratory Results - last 24 hr 12/08/24 02:39: WBC 18.4 H, RBC 4.29, Hgb 13.1, Hct 37.9, MCV 88.3, MCH 30.5, MCHC 34.6, RDW Std Deviation 38.5, RDW Coeff of Jhonathan 11.9, Plt Count 236, MPV 10.3, Immature Gran % (Auto) 0.400, Neut % (Auto) 86.8 H, Lymph % (Auto) 6.1 L, Gila % (Auto) 5.4, Eos % (Auto) 0.9, Baso % (Auto) 0.4, Absolute Neuts (auto) 15.9 H, Absolute Lymphs (auto) 1.12, Nucleated RBC % 0, Sodium 138, Potassium 4.2, Chloride 102, Carbon Dioxide 24.2, Anion Gap 12, BUN 16, Creatinine 1.11, Estim Creat Clear Calc 40.14 L, Est GFR (MDRD) Non-Af 53 L, BUN/Creatinine Ratio 14.3, Glucose 130 H, Calcium 9.4, Troponin T High Sens 22 H 12/08/24 04:48: Troponin T Hi Sens 2 Hr 15 H Micro: Microbiology 12/08/24 02:39 Mucosa - Nose SARS-CoV-2, Influenza & RSV (PCR) - Final Imaging Radiology Impression Chest X-Ray 12/08/24 02:28 IMPRESSION: Question appearance of bilateral egtuh-lodiziq-uvxd-left lower lung peribronchial cuffing, possible bronchitis/reactive airway disease, clinically correlate. No focal consolidation. Slight blunting of the posterior recesses on the lateral view is similar to the prior study considering the obliquity and may represent pleural thickening versus tiny pleural fluid. Reading Location: [id number] Imaging Services [address] [place] [id number] CTA Chest W/WO Contrast MR#: [id number] Acct: [id number] Name: ERMELINDA DAWN Rep #: [id number] : 1955 F 69 From: Juventino Eric MD PCP: Dr. Sukhjinder Zarate MD Status: ADM JONH Study: CTA Chest W/WO Contrast Date of Exam: 12/08/24 Exam# [id number] Ordering Dr: Willis Bustamante DO EXAM: CTA of the chest with contrast CLINICAL HISTORY: Leukocytosis TECHNIQUE: CTA of the chest with contrast with coronal and sagittal reformatted images and MIP images FINDINGS: No evidence of filling defect to suggest pulmonary embolism. Thoracic aorta appears within limits. No pericardial or pleural effusion. Incidental small fat containing Bochdalek's hernia posterior right hemidiaphragm for example axial 30. No adenopathy identified. The central airways appear patent. Suggestion of mild diffuse bronchial wall prominence, possible bronchitis. No focal consolidation. Sequela of previous granulomatous disease. Limited images upper abdomen appear unremarkable. Multilevel thoracic spondylosis/discogenic change. CT/CTA Chest W/WO Contrast IMPRESSION: No evidence of filling defect to suggest pulmonary embolism. Suggestion of mild diffuse bronchial wall prominence, possible bronchitis. No focal consolidation. Reading Location: [id number] CC: Dr. Sukhjinder Zarate MD; Dr. Willis Bustamante DO ~ Tank Car Repairer: Signed Assessment & Plan Assessment/Plan (1) Asthma exacerbation: QUALIFIERS: Asthma persistence: persistent Asthma severity: severe Qualified Code(s): J45.51 - Severe persistent asthma with (acute) exacerbation (2) Acute bacterial bronchitis: (3) Respiratory insufficiency: (4) Adverse drug reaction: QUALIFIERS: Encounter type: initial encounter Qualified Code(s): T50.905A - Adverse effect of unspecified drugs, medicaments and biological substances, initial encounter (5) Idiopathic cardiomyopathy: (6) Nonrheumatic mitral valve disorder: (7) Chest pressure: (8) Depression: QUALIFIERS: Depression Type: unspecified Qualified Code(s): F32.A - Depression, unspecified PLAN: Plan 1. 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 Continue IV methylprednisolone and IV ceftriaxone. Continue scheduled and prn nebulizers/inhalers. CT of chest positive for evidence of bronchitis but negative for infiltrate. Give acetaminophen prn for pain or fever. 2. Respiratory Insufficiency due to #1 - Wean supplemental oxygen as tolerated. 3. History of idiopathic cardiomyopathy and nonrheumatic mitral valve disorder with intermittent chest heaviness on carvedilol with suspected Adverse Drug Reaction contributing to #1 - Troponins in normal range and trending down. Check echocardiogram to evaluate LVEF. Stop carvedilol and start oral Cardizem CD 120 mg PO daily and monitor for improvement. 4. History of depression; on bupropion with increased life-stress due to the escalating pattern of illness in her mother adding to the medical complexity of #1 - #3 - Resume current treatment plus give prn alprazolam for breakthrough symptoms. 5. Essential Hypertension; sacubitril-valsartan and carvedilol - Maintain home regimen plus give prn hydralazine IV prn for systolic blood pressure > 160 mmHg. 6. Hyperlipidemia; on pravastatin - Resume statin as previous. 7. History of allergic rhinitis - Noted. 8. History of irregular heart beat - Noted with no evidence of recurrence at this time. We will watch on telemetry. 9. History of COVID-19 - Noted with negative preliminary viral screening this admission. 10. History of CTS; s/p release - Noted. 11. History of basal cell carcinoma of the skin - Noted. 12. History of rosacea; on prn topical metronidazole - Continue prn metronidazole preparation as previous. 13. GERD; with history of swallowing difficulty on pantoprazole - Maintain PPI. 14. Osteoporosis - Stable. 15. OA; with history of Right THR (2018), history of Right TKR and meniscus repair - Give acetaminophen prn according to pain scale outlined in #1. 16. DVT prophylaxis - Lovenox 40 mg sq daily. Total time: Approximately (but not less than) 75 minutes. Charges/Coding Visit Charges Inpatient E&M: 03402 Init Hosp L3
[2024-12-08] MEDS: Ceftriaxone 1 GM/50 ML BAG IV (07:12)
[2024-12-08 07:33] LABS: Troponin T High Sens 4 HR 13 ng/L (<=14)
--- NOTE | 2024-12-08 07:45 | PN.HOSP_ITS ---
Hospitalist Note Patient is a 69-year-old female who was admitted early this morning with shortness of breath and wheezing. She has a noted history of chronic persistent asthma and is on budesonide and as needed albuterol. Symptoms started about 3 days prior to presentation and she had gradual onset of dyspnea on exertion and wheezing. She had been using her rescue inhaler inhaler much more recently. Symptoms are worse with exertion. She also had an on productive cough with intermittent sensation of heaviness in her chest. Vital signs on presentation showed a temperature of 98.1, heart rate 87, respiratory 18, blood pressure was 156/85 and pulse ox was initially 95% on room air but dropped to 88% on room air while she was in the emergency department. She was placed on 2 L nasal cannula and her oxygen saturation improved to 92 to 96%. CBC showed a leukocytosis with a white count of 18.4. She had a left shift with an 86.8% neutrophilia. Chem istry panel was overall unremarkable. Troponin will initial was 22 with a repeat of 15-09/17 troponin of 13. Her UA is unremarkable. Chest x-ray showed possible right greater than left lower lung peribronchial cuffing with possible bronchial otitis or reactive airway disease and a CTA of her chest was performed and was negative for pulmonary emboli or dissection but did show mild diffuse bronchial wall prominence/bronchitis with no focal consolidation. COVID/flu/influenza and respiratory viral panel are all unremarkable. She was admitted to telemetry, placed on community-acquired pneumonia coverage, started on steroids, given aerosols, and an echocardiogram was ordered. Her echo showed an EF of 45% with stage I diastolic dysfunction and no specific wall motion abnormalities. This is slightly improved from her last echo done on 02/16/2024 at which time she had an EF of 40% and generalized hypokinesis. Will continue therapy as above. Discontinue IV fluids. I will give 1 dose of Lasix. She has no signs of respiratory distress at this time if were able to wean oxygen and she requires no oxygen with rest or exertion may be able to discharge her home tomorrow on a prednisone taper.
[2024-12-08 08:40] LABS: Bacteria 0 SEEN /hpf (None Seen); Mucous, Urine 0 SEEN /hpf (<or=2+); Squamous Epithelial Cells - UA 0 SEEN /hpf (5-10); White Blood Cells 0 SEEN /hpf (0-5)
[2024-12-08 08:43] LABS: Color, Urine Yellow (Yellow); Glucose, Dipstick Normal (Normal); Ketone-Dipstick Negative (Negative); Leukocyte Esterase-Dipstick Negative /ul (Negative); Nitrite-Dipstick Negative (Negative); Occult Blood-Urine Negative /ul (Negative); Protein-Dipstick 15 mg/dl (Negative); Specific Gravity, Urine 1.005 (1.002-1.030); Urine Bilirubin Dipstick Negative (Negative); Urine Clarity Clear (Clear); Urine Urobilinogen Normal (Normal); Urine pH 6.5 (5.0 - 8.0)
--- NOTE | 2024-12-08 09:41 | ECHOD_ITS ---
Reason For Study Reason For Study: Chest pain, cough Procedure This was a 2D Doppler, Color Flow transthoracic echocardiogram. Exam performed portable in patient room. Left Ventricle Normal LV size. The left ventricular ejection fraction is 45 %. Stage 1 diastolic dysfunction. Left ventricular systolic function is lower limits of normal. No regional wall motion abnormalities noted. Right Ventricle Normal RV size. Normal systolic function. Mitral Valve Normal mitral valve. Mild (1+) mitral valve insufficiency. Tricuspid Valve Normal tricuspid valve. Aortic Valve Trisinus/trileaflet aortic valve. Pulmonic Valve Normal pulmonic valve. Great Vessels Normal aortic root. The pulmonary artery is normal size. Normal inferior vena cava. Pericardium/Pleural No pericardial effusion. MMode/2D Measurements & Calculations LVIDd: 4.8 cm IVSd: 0.81 cm Ao root diam: 3.3 cm LVIDs: 3.6 cm LVPWd: 0.92 cm RVDd: 3.4 cm FS: 24.9 % LAV(MOD-bp): 38.4 ml LVAd ap4: 27.9 cm2 LVAd ap2: 28.7 cm2 LAV(MOD-bp) Indexed: 22.8 ml/m2 LVLd ap4: 7.4 cm LVLd ap2: 7.4 cm LAV(MOD-sp2): 35.3 ml EDV(MOD-sp4): 89.6 ml EDV(MOD-sp2): 94.8 ml LAV(MOD-sp4): 32.7 ml EDV(sp4-el): 88.8 ml EDV(sp2-el): 93.9 ml LVAs ap4: 19.1 cm2 LVAs ap2: 20.4 cm2 LVLs ap4: 6.6 cm LVLs ap2: 6.8 cm ESV(MOD-sp4): 49.6 ml ESV(MOD-sp2): 53.6 ml ESV(sp4-el): 47.1 ml ESV(sp2-el): 52.1 ml EF(MOD-sp4): 44.6 % EF(MOD-sp2): 43.5 % EF(sp4-el): 47.0 % SV(MOD-sp4): 40.0 ml SV(MOD-sp2): 41.2 ml SV(sp4-el): 41.7 ml SI(MOD-sp4): 23.7 ml/m2 SI(MOD-sp2): 24.4 ml/m2 LA A4 area: 13.2 cm2 LA dimension(2D): 3.1 cm RA A4 area: 13.7 cm2 TAPSE: 2.4 cm Time Measurements MV dec time: 0.23 sec Doppler Measurements & Calculations MV E max tanvir: 59.3 cm/sec Lat Peak E' Tanvir: 11.6 cm/sec Med Peak E' Tanvir: 8.4 cm/sec MV A max tanvir: 85.4 cm/sec E/E' lat: 5.1 E/E' med: 7.1 MV E/A: 0.69 Ao V2 max: 128.4 cm/sec LV V1 max: 96.2 cm/sec MV dec slope: 258.5 cm/sec2 Ao max P.6 mmHg LV V1 max P.7 mmHg Ao V2 mean: 89.4 cm/sec LV V1 mean P.0 mmHg Ao mean P.5 mmHg LV V1 mean: 68.1 cm/sec Ao V2 VTI: 26.5 cm LV V1 VTI: 20.8 cm AV (velocity ratio): 0.78 PA V2 max: 79.5 cm/sec ECHO/Echo Complete Interpretation Summary Normal LV size. The left ventricular ejection fraction is 45 %. Stage 1 diastolic dysfunction. Left ventricular systolic function is lower limits of normal. Ordering Physician: Jackson Brand Referring Physician: Sukhjinder Zarate Performed By: Jaimee Carreon RDCS
[2024-12-08] MEDS: Azithromycin 500 MG in 0.9% Normal Saline (250mL Bag) 250 ML 255 MG IV (10:31)
[2024-12-08] MEDS: 0.9% Normal Saline (1000mL) 1,000 ML 70 ML IV (10:31)
[2024-12-08 10:51] LABS: Cholesterol 162 mg/dL (<=200); High Density Lipoprotein 56 mg/dL; Low Density Lipoprotein Calc. 97 mg/dL; Triglycerides 45 mg/dL; Very Low Density Lipoprotein 9 mg/dL (5-40); cholesterol:hdl ratio screen 2.91
--- NOTE | 2024-12-08 12:18 | CASEMGMT ---
WAN ARZOLA Assessment Face to Face with patient for initial transition planning/care coordination assessment. WAN ARZOLA introduced self and role at [facility], pt voices understanding. Pt is A&Ox4 and is resting comfortably in bed and is calm. Care providers, pharmacy, and demographics verified. Admitting dx: Hypoxia LACE Strata: 2 PCP: Elliot Specialists: Ziyad (Cardio), Belem Barnett (Pulmonary), Tristen (GI), Brittaney Wood (ASSISTANT SECRETARY - BASIN FINISH OPERATOR TIG WELDER), Dr Jacki Mix through [facility] Preferred Pharmacy: [facility] Insurance: Zoyi A/B, [employer] Prescription Benefit: Yes LNOK: Tyson Bauman (H), Johnie Bauman (Son) Living Arrangements: Pt is currently living at her mother's apartment to help take care of her. Pt's mother is currently in the ICU. Pt states that she lives there with her and mother normally. Pt states that it is a ground level apartment with a flat entrance. ADLs/IADLs: Independent Transportation: Self, . Denies concerns DME: Pt states that she does not use DME personally but has access to the following through her mom. Pulse ox, cane, W/C, shower chair, rollator, extended tub bench, BSC, lift chair, and transport chair. Pt is currently requiring additional oxygen and may qualify for home oxygen use. A verbal list of local in-network DME companies were provided to the pt at this time. Pt prefers [facility] HHC/SNF: Denies history or needs Pt?s goal: Return home Plan: Anticipate home no needs e/f potential new oxygen. 6-Click score is 24. Pt denies the need for any form of additional therapy and states that she feels safe returning home with her family once she is medically ready. Pt denies further questions or concerns at this time. Report given to DIVIDING MACHINE OPERATOR HELPER CM. CM to follow. Lio Porter RN, CM
[2024-12-08] MEDS: dilTIAZem CD 120 MG Capsule PO (12:38)
[2024-12-08] MEDS: Pantoprazole Sodium 40 MG Tablet PO (12:39)
[2024-12-08] MEDS: SACUBITRIL/VALSARTAN 49-51 MG TABLET 1 EACH PO ×2 (12:39→21:45)
[2024-12-08] MEDS: buPROPion (XL) 300 MG TABLET.XL PO (12:39)
[2024-12-08] MEDS: Enoxaparin 40 MG/0.4 ML Syringe SC (12:39)
[2024-12-08] MEDS: MethylPREDNISolone 125 MG/2 ML Vial 60 MG IV (12:40)
--- NOTE | 2024-12-08 13:59 | CHAPLAIN ---
Type of Pastoral Visit _x__ Initial Visit ___ Follow-up Visit ___ On-call Visit ___ General Patient Visit ___ Spiritual Assessment ___ Family Conference ___ Bereavement ___ Rapid Response ___ Code Blue ___ Other (describe below) Pastoral Care Referral From _x__ Patient ___ Family _x__ Nurse ___ Physician _x__ Tomb Maker Helper ___ Instructor Traffic Safety ___ Other (describe below) Sacrament/Intervention _x__ Active listening ___ Anointing ___ Anglican ___ Bereavement ___ Communion _x__ Anne exploration ___ _x__ Life review _x__ Prayer ___ Reconciliation ___ Sacrament of Sick _x__ Supportive presence ___ Wedding ___ Other (describe below) Pastoral Comments patient's mother is in the ICU today and not doing well; this patient had been seen earlier this week when she was visiting her mother in the hospital; pt is now ill herself; this patient's daughter is visiting both of them today; mother in the ICU will have a hospice consult today; offered support and listening to her concerns; this patient is mostly concerned about the spiritual condition of her mother who will not live long now that she is declining and at age 89; this patient is hoping for her mother's assurance of salvation and eternal life; the mother has not been involved in a anne community since she was a young woman but claims to be a Voodoo, even though there is no evidence of that anne in her life per the daughter; made two appearances at the ICU where that patient/mother is sleeping; talked with the granddaughter of ICU patient who is also the daughter of this patient, to offer support and presence; acknowledged that this oil deliverer will look for an opportunity to talk with and pray for the mother in ICU; will follow up with this patient as able too; prayer given now
[2024-12-08 14:20] LABS: Red Blood Cells-Urine 0 SEEN /hpf (0-5)
[2024-12-08] MEDS: Calcium Carb/Vitamin D 1 TABLET Tablet PO (17:40)
[2024-12-08] MEDS: Furosemide 40 MG/4 ML Vial IV (20:15)
[2024-12-08] MEDS: 0.9% Saline Lock 10 ML Syringe IV ×2 (20:25→21:49)
[2024-12-08] MEDS: Pravastatin 20 MG Tablet PO (21:45)
[2024-12-08] MEDS: Methylprednisolone Sod Succ 40 MG/ML VIAL IV (21:47)
[2024-12-09 03:00] VITALS: BP 100/57; PULSE 70; RESP 16; TEMP 36.7; O2SAT 95
[2024-12-09 05:02] VITALS: BMI 23.9
[2024-12-09] MEDS: Methylprednisolone Sod Succ 40 MG/ML VIAL IV (05:49)
[2024-12-09] MEDS: 0.9% Saline Lock 10 ML Syringe IV ×2 (05:49→09:18)
[2024-12-09] MEDS: Ipratropium/Albuterol Sulfate 3 ML AMPUL.NEB INHALATION (07:19)
[2024-12-09 08:09] LABS: Absolute Neutrophil Count 14.4 X10^3/uL (2.0-7.7); Basophil# 0.02 X10^3/uL; Basophil% 0.1 % (0-1); Hematocrit 35.6 % (37-47); Hemoglobin 12.2 g/dL (12.0-15.0); Mean Corp Hgb Conc 34.3 g/dL (32-36); Mean Corpuscular Volume 87.7 fL (81-99); Mean Platelet Vol. 10.7 fl (6.2-12.0); Monocyte# 0.37 X10^3/uL; Monocyte% 2.3 % (0-10); NRBC Flagged by Analyzer 0 % (0-5); Platelet Count 248 K/mm3 (150-450); RBC Distribution Width CV 11.9 % (11.6-14.6); RBC Distribution Width SD 38.6 fl (35.1-43.9); Red Blood Count 4.06 M/mm3 (4.2-5.4); White Blood Count 16.2 K/mm3 (4.4-11.0)
[2024-12-09 08:23] VITALS: PULSE 79; RESP 18; O2SAT 93
[2024-12-09 08:29] VITALS: BP 133/74; PULSE 85; RESP 16; TEMP 36.6; O2SAT 93
[2024-12-09 08:31] VITALS: O2SAT 93; O2SAT 95
[2024-12-09] MEDS: Pantoprazole Sodium 40 MG Tablet PO (09:17)
[2024-12-09] MEDS: dilTIAZem CD 120 MG Capsule PO (09:17)
[2024-12-09] MEDS: Calcium Carb/Vitamin D 1 TABLET Tablet PO (09:17)
[2024-12-09] MEDS: SACUBITRIL/VALSARTAN 49-51 MG TABLET 1 EACH PO (09:17)
[2024-12-09] MEDS: buPROPion (XL) 300 MG TABLET.XL PO (09:18)
[2024-12-09] MEDS: Azithromycin 500 MG in 0.9% Normal Saline (250mL Bag) 250 ML 255 MG IV (09:18)
[2024-12-09 09:19] LABS: Thyroid Stim Hormone (TSH) 0.215 uIU/mL (0.300-4.200)
[2024-12-09] MEDS: Ceftriaxone 1 GM/50 ML BAG IV (10:27)
[2024-12-09 10:34] LABS: ALB/GLOB Ratio 1.4 RATIO (0.9-2.4); AST(SGOT) 22 U/L (<=31); Alanine Aminotransfer ALT/SGPT 19 U/L (<=34); Albumin, Serum 4.1 g/dL (3.4-4.8); Alkaline Phosphatase 75 U/L (35-104); Anion Gap 13 (5-15); BUN 15 mg/dL (4-19); BUN/Creat Ratio 14.1 RATIO (10-20); Calcium,Total 9.4 mg/dL (7.6-11.0); Carbon Dioxide 21.9 mmol/L (21.0-32.0); Chloride 101 mmol/L (98-108); Creatinine, Serum 1.04 mg/dL (0.70-1.20); EST Glomerular Filtration Rate 57 (>60); Estimated Creatinine Clearance 42.84 ml/min (50-250); Globulin 2.9 g/dL (2.2-4.2); Glucose 226 mg/dL (70-99); Potassium 3.7 mmol/L (3.3-5.1); Sodium Level 136 mmol/L (133-145)
[2024-12-09 11:00] LABS: Phosphorus 2.6 mg/dL (2.7-4.5)
--- NOTE | 2024-12-09 11:41 | PCM.DC.SUM ---
Providers Date of Admission: 12/08/24 Date of Discharge: 12/09/24 Primary Care Physician: Dr. Sukhjinder Zarate MD Reason For Visit: HYPOXIA Diagnosis Discharge Diagnosis (1) Asthma exacerbation: Status: Acute Code(s): J45.901 - Unspecified asthma with (acute) exacerbation Qualifiers: Asthma severity: severe Asthma persistence: persistent Qualified Code(s): J45.51 - Severe persistent asthma with (acute) exacerbation (2) Acute bacterial bronchitis: Status: Acute Code(s): J20.8 - Acute bronchitis due to other specified organisms; B96.89 - Other specified bacterial agents as the cause of diseases classified elsewhere (3) Respiratory insufficiency: Status: Acute Code(s): R06.89 - Other abnormalities of breathing (4) Adverse drug reaction: Status: Acute Code(s): T50.905A - Adverse effect of unspecified drugs, medicaments and biological substances, initial encounter Qualifiers: Encounter type: initial encounter Qualified Code(s): T50.905A - Adverse effect of unspecified drugs, medicaments and biological substances, initial encounter (5) Idiopathic cardiomyopathy: Status: Chronic Code(s): I42.8 - Other cardiomyopathies (6) Nonrheumatic mitral valve disorder: Status: Chronic Code(s): I34.9 - Nonrheumatic mitral valve disorder, unspecified (7) Chest pressure: Status: Acute Code(s): R07.89 - Other chest pain (8) Depression: Status: Acute Code(s): F32.A - Depression, unspecified Qualifiers: Depression Type: unspecified Qualified Code(s): F32.A - Depression, unspecified Medications at Discharge Home Medications metronidazole 1 % topical gel 60 g TP PRN PRN ROSECEA 03/29/18 calcium 600 mg (as carbonate)-vitamin D3 12.5 mcg (500 unit) capsule (Calcium with Vit D3) 600 cap PO BID suppliment 03/23/20 turmeric 100 mg-maryann 150 mg-olive 50 mg-oreg 150 mg-capryl capsule 1 cap PO DAILY suppliment 04/30/23 sacubitril 49 mg-valsartan 51 mg tablet (Entresto) 1 tab PO BID heart #180 tabs 02/19/24 omeprazole 40 mg capsule,delayed release 40 mg PO DAILY gerd #90 caps 06/29/24 budesonide 180 mcg/actuation breath activated powder inhaler (Pulmicort Flexhaler) 1 inh inhalation DAILY asthma 3 months #1 ea 07/14/24 bupropion HCl 300 mg 24 hr tablet, extended release See Rx Instructions .Route .COMPLEX mood #90 tabs 08/22/24 carvedilol 12.5 mg tablet 12.5 mg PO BID Dose has been decreased. Pt is out of med. heart #180 tabs 08/22/24 pravastatin 20 mg tablet 20 mg PO QHS CHOLESTEROL #90 tabs 11/15/24 albuterol sulfate 90 mcg/actuation aerosol inhaler 2 puff inhalation Q6H PRN shortness of breath or wheezing #1 device 12/09/24 levofloxacin 750 mg tablet 750 mg PO DAILY #4 tabs 12/09/24 prednisone 10 mg tablet 10 mg PO DAILY #20 tabs 12/09/24 Hospital Course Operations None Procedures 2-D Echocardiogram, EKG and - (Chest x-ray/CTA chest) Summary of Care Provided Minutes Spent on Discharge: 38 Hospital Course: Patient is a 69-year-old female who was admitted early this morning with shortness of breath and wheezing. She has a noted history of chronic persistent asthma and is on budesonide and as needed albuterol. Symptoms started about 3 days prior to presentation and she had gradual onset of dyspnea on exertion and wheezing. She had been using her rescue inhaler inhaler much more recently. Symptoms are worse with exertion. She also had an on productive cough with intermittent sensation of heaviness in her chest. Vital signs on presentation showed a temperature of 98.1, heart rate 87, respiratory 18, blood pressure was 156/85 and pulse ox was initially 95% on room air but dropped to 88% on room air while she was in the emergency department. She was placed on 2 L nasal cannula and her oxygen saturation improved to 92 to 96%. CBC showed a leukocytosis with a white count of 18.4. She had a left shift with an 86.8% neutrophilia. Chemistry panel was overall unremarkable. Troponin will initial was 22 with a repeat of 15-09/17 troponin of 13. Her UA is unremarkable. Chest x-ray showed possible right greater than left lower lung peribronchial cuffing with possible bronchial otitis or reactive airway disease and a CTA of her chest was performed and was negative for pulmonary emboli or dissection but did show mild diffuse bronchial wall prominence/bronchitis with no focal consolidation. COVID/flu/influenza and respiratory viral panel are all unremarkable. She was admitted to telemetry, placed on community-acquired pneumonia coverage, started on steroids, given aerosols, and an echocardiogram was ordered. Her echo showed an EF of 45% with stage I diastolic dysfunction and no specific wall motion abnormalities. This is slightly improved from her last echo done on 02/16/2024 at which time she had an EF of 40% and generalized hypokinesis. She clinically improved significantly within 24 hours of admission and was back to the point where she is on room air. She was unfortunately not able to produce a sputum sample but clinically improved and her white count had trended down despite being on steroids. She was given Lasix x 1 dose. Given the fact that she is on room air she is stable for discharge. Will discharge her on prednisone taper if it is very brief, renew her albuterol inhaler, and 4 more days of Levaquin. There was some discussion of transitioning her from a beta-mao to a calcium channel mao however with her EF being low goal-directed therapy would be most appropriate with ongoing dose of Coreg. She has been on this 13 years and has not had any exacerbations directly related to this I think were safe and continuing her carvedilol at the time of discharge. She was able to be discharged home in stable condition with the above prescriptions on 12/09/2024. She is to follow-up with a primary care physician within 1 week after discharge. Patient improved more quickly than anticipated at the time of admission. Discharge diagnoses: Hypoxia secondary to acute exacerbation of asthma Acute bronchitis History of severe persistent asthma History of idiopathic cardiomyopathy Mitral valve disease-nonrheumatic Essential hypertension Hyperlipidemia Allergic rhinitis History of basal cell carcinoma GERD Osteoporosis Osteoarthritis Depression Physical Exam Const alert, oriented x3, no apparent distress, average body habitus, no limitations, healthy appearing and well nourished Constitutional Narrative: Very pleasant, older white female, sitting up in the chair at the bedside, multiple family members at bedside, appears comfortable, nontoxic General Appearance: cooperative, comfortable, well kempt and well developed Exam Limitations: no limitations HEENT normocephalic, head/scalp atraumatic, hearing grossly normal bilaterally and moist oral mucous membranes HEENT Narrative: Mallampati 2, no thrush, dentition is good Eyes conjunctivae normal Eyes Narrative: No scleral icterus Neck supple Neck Narrative: Trachea midline Resp normal respiratory effort, no retractions, no use of accessory muscles and clear to auscultation bilaterally Auscultation: Negative for rales, rhonchi or wheezes Cardio regular rate, regular rhythm, S1 normal heart sound, S2 normal heart sound, no murmurs, no rub, no gallops and no clicks GI normal to inspection, nondistended, normoactive bowel sounds, soft to palpation and non-tender Extremity no clubbing, cyanosis or edema Skin no jaundice, no petechiae and no mottling Neuro oriented x3, moves all extremities and no focal motor deficits Speech: speech normal Psych affect normal Psych Narrative: Extremely pleasant, eye contact is good, patient interacts appropriately Weight / BMI Weight Weight: 63.2 kg Body Mass Index (BMI) 23.9 ABG / Lab / Microbiology Data 12/09/24 07:04 12/09/24 07:04 Laboratory: Laboratory Results - last 24 hr 12/08/24 08:23: Urine RBC 0 SEEN 12/09/24 07:04: WBC 16.2 H, RBC 4.06 L, Hgb 12.2, Hct 35.6 L, MCV 87.7, MCH 30.0, MCHC 34.3, RDW Std Deviation 38.6, RDW Coeff of Jhonathan 11.9, Plt Count 248, MPV 10.7, Immature Gran % (Auto) 0.600, Neut % (Auto) 89.0 H, Lymph % (Auto) 8.0 L, [place] % (Auto) 2.3, Eos % (Auto) 0.0, Baso % (Auto) 0.1, Absolute Neuts (auto) 14.4 H, Absolute Lymphs (auto) 1.30, Nucleated RBC % 0, Sodium 136, Potassium 3.7, Chloride 101, Carbon Dioxide 21.9, Anion Gap 13, BUN 15, Creatinine 1.04, Estim Creat Clear Calc 42.84 L, Est GFR (MDRD) Non-Af 57 L, BUN/Creatinine Ratio 14.1, Glucose 226 H, Calcium 9.4, Phosphorus 2.6 L, Total Bilirubin 0.20, AST 22, ALT 19, Alkaline Phosphatase 75, Total Protein 7.0, Albumin 4.1, Globulin 2.9, Albumin/Globulin Ratio 1.4, TSH 0.215 L Microbiology: Microbiology 12/08/24 10:20 Mucosa - Nose Respiratory Panel (PCR) - Final 12/08/24 02:39 Mucosa - Nose SARS-CoV-2, Influenza & RSV (PCR) - Final Radiography Diagnostic Testing: Radiology Impression Echocardiogram 12/08/24 09:41 Interpretation Summary Normal LV size. The left ventricular ejection fraction is 45 %. Stage 1 diastolic dysfunction. Left ventricular systolic function is lower limits of normal. Ordering Physician: Jackson Brand Referring Physician: Sukhjinder Zarate Performed By: Jaimee Carreon RDCS D/C Instructions Discharge Diet: Low fat / Low cholesterol Discharge Activity: Return to Normal Activity DC O2, CPAP, BIPAP Needs Home O2 Discharge instructions: No Meaningful Use Info Meaningful Use Meaningful Use Diagnoses (Choose all that apply): None applicable Ischemic Stroke Statin Dosing Therapy Reference: STATIN DOSE THERAPY REFERENCE: * Patients > 75 years receive moderate or high dose statin therapy. * Patients 75 years or YOUNGER should receive HIGH intensity statin dose unless contraindicated. You will be required to document reason for non-treatment if statin daily dose does not meet guidelines. HIGH DOSE STATIN THERAPY DAILY Atorvastatin > than or = to 40 mg Rosuvastatin > than or = to 20 mg Amlodipine + Atorvastatin > than or = to 2.5/40 mg Ezetimibe + Simvastatin 10/80 mg Simvastatin 80mg Discharge Plan Admission Admit Date/Time: 12/08/24 07:20 Primary Reason for Your Visit: Shortness of breath Attending Provider: Roseanna Weems Primary Care Provider: Sukhjinder Zarate Consulting Providers: Jackson Brand Instructions Additional Instructions / Restrictions: 1. Please continue to use your Acapella and incentive spirometer for the next 7 to 10 days on a regular basis at least 3-5 times daily 2. Please follow-up with your graining operator and polarity tester as previously instructed Discharge Orders/Prescriptions Prescriptions: New levofloxacin 750 mg tablet 750 mg PO DAILY Qty: 4 0RF prednisone 10 mg tablet 10 mg PO DAILY Qty: 20 0RF Rx Instructions: 4 tablets x 2 days, 3 tablets x 2 days, 2 tablets x 2 days, 1 tablet x 2 days, and Continued calcium carbonate-vitamin D3 [Calcium 600 with Vitamin D3] 600 mg(1,500mg) -500 unit capsule 600 cap PO BID irdgisfz-ckby-yneha-oreg-capry 100 mg-150 mg- 50 mg-150 mg capsule 1 cap PO DAILY Pulmicort Flexhaler 180 mcg/actuation aerosol powdr breath activated 1 inh INHALATION DAILY 90 Days Qty: 1 11RF metronidazole 60 GM gel 60 g TP PRN PRN (Reason: ROSECEA) albuterol sulfate 90 mcg/actuation HFA aerosol inhaler 2 puff INHALATION Q6H PRN (Reason: shortness of breath or wheezing) Qty: 1 1RF sacubitril-valsartan [Entresto] 49-51 mg tablet 1 tab PO BID Qty: 180 3RF omeprazole 40 mg capsule,delayed release(DR/EC) 40 mg PO DAILY Qty: 90 1RF bupropion HCl 300 mg tablet extended release 24 hr See Rx Instructions .ROUTE .COMPLEX Qty: 90 1RF Dose Instruction: TAKE 1 TABLET BY MOUTH DAILY Rx Instructions: TAKE 1 TABLET BY MOUTH DAILY carvedilol 12.5 mg tablet 12.5 mg PO BID Qty: 180 3RF Rx Instructions: must administer with a meal/food pravastatin 20 mg tablet 20 mg PO QHS Qty: 90 3RF Referrals / Follow Up: Sukhjinder Zarate MD [Primary Care Provider] - In 1 Week Disposition Disposition (needs filled in before D/C Order can be placed): Home, Self Care Charges/Coding Visit Charges Inpatient E&M: 26486 Disch Hosp >30min
--- NOTE | 2024-12-09 12:19 | CASEMGMT ---
WAN ARZOLA NOTE: Home O2 amb testing has been completed. Pt does not qualify for home O2. Discharge order is in. Pt is out of room at this time, visiting w/her mom in ICU. Per WAN Tucker, pt would like [id number]. Call placed to [facility] retail pharmacy and they were made aware. Maria G WILCOX RN CM
== END 2024-12-09 15:31 | disposition home or self-care (01) | DRG 202 ==
LOC: ED 06:29 → PCU 06:39
PROVIDERS: Admitting Provider Internal Medicine; Emergency Provider Emergency Medicine; PCP Internal Medicine; Visit Provider Internal Medicine
DX: J45.51 Severe persistent asthma with (acute) exacerbation (principal); I42.9 Cardiomyopathy, unspecified; I50.30 Unspecified diastolic (congestive) heart failure; I11.0 Hypertensive heart disease with heart failure; F32.A Depression, unspecified; I34.9 Nonrheumatic mitral valve disorder, unspecified; J20.8 Acute bronchitis due to other specified organisms; E78.5 Hyperlipidemia, unspecified; K21.9 Gastro-esophageal reflux disease without esophagitis; L71.9 Rosacea, unspecified; D72.829 Elevated white blood cell count, unspecified; M16.11 Unilateral primary osteoarthritis, right hip; Z79.51 Long term (current) use of inhaled steroids; T50.905A Adverse effect of unspecified drugs, medicaments and biological substances, initial encounter; R09.02 Hypoxemia; R07.89 Other chest pain; Z79.52 Long term (current) use of systemic steroids; Z79.899 Other long term (current) drug therapy; Z79.02 Long term (current) use of antithrombotics/antiplatelets; Z96.651 Presence of right artificial knee joint; Z98.890 Other specified postprocedural states; R06.89 Other abnormalities of breathing; Z86.16 Personal history of COVID-19; Z85.820 Personal history of malignant melanoma of skin; Z11.52 Encounter for screening for COVID-19; B96.89 Other specified bacterial agents as the cause of diseases classified elsewhere
CPT/HCPCS: 36415; 71046; 71275; 80048; 80053; 80061; 81001; 83735; 84100; 84443; 84484; 85025; 87631; 87633; 93005; 93306; 94640; 94668; 99252; 99285; Q9967; A4216; G0463; J1940

== ENCOUNTER → 2025-06-19 | Outpatient (CLI) | payer MEDICARE, OTHER, SELFPAY ==
[2025-06-19 12:23] LABS: Hematocrit 40.4 % (37-47); Hemoglobin 13.0 g/dL (12.0-15.0); Immature Granulocytes Count 0.010 X10^3/uL (0.0-0.0); Mean Corp Hgb Conc 32.2 g/dL (32-36); Mean Corpuscular Volume 94.0 fL (81-99); Mean Platelet Vol. 12.1 fl (6.2-12.0); NRBC Flagged by Analyzer 0 % (0-5); Platelet Count 177 K/mm3 (150-450); RBC Distribution Width CV 13.2 % (11.6-14.6); RBC Distribution Width SD 45.0 fl (35.1-43.9); Red Blood Count 4.30 M/mm3 (4.2-5.4); White Blood Count 4.9 K/mm3 (4.4-11.0)
[2025-06-19 12:50] LABS: AST(SGOT) 27 U/L (<=31); Alanine Aminotransfer ALT/SGPT 22 U/L (<=34); Albumin, Serum 4.1 g/dL (3.4-4.8); Alkaline Phosphatase 71 U/L (35-104); Anion Gap 11 (5-15); BUN 14 mg/dL (4-19); BUN/Creat Ratio 11.4 RATIO (10-20); Calcium,Total 9.5 mg/dL (7.6-11.0); Carbon Dioxide 24.3 mmol/L (21.0-32.0); Chloride 106 mmol/L (98-108); Globulin 2.5 g/dL (2.2-4.2); Glucose 104 mg/dL (70-99); Potassium 4.1 mmol/L (3.3-5.1)
== END | disposition home or self-care (01) ==
LOC: BIMLAB 08:10
PROVIDERS: PCP Internal Medicine; Referring Provider Internal Medicine; Visit Provider Internal Medicine
DX: I10 Essential (primary) hypertension (principal); K21.9 Gastro-esophageal reflux disease without esophagitis
CPT/HCPCS: 36415; 80053; 85025